=== PATIENT | female | born 1935 | race Caucasian/White ===

== ENCOUNTER → 2016-04-08 | Outpatient (CLI) | payer OTHER ==
[~2016-04-08] MED LIST: ATOR-22 PO; CALC-51 PO; DABI150C PO; FLEC50TA20 PO; LEVO75TA PO; LISI-461 PO; LORA-741 PO; METO50TA17 PO; MULTTAB58 PO; OMEGCAP2 PO; OMEP20CA9 PO; TMB100 PO
[2016-04-08 14:05] LABS: AST/SGOT 13 U/L (15-37); BLOOD UREA NITROGEN 16 mg/dl (7-18); BUN/CREATININE RATIO 22.1 (10-20); CALCIUM 8.6 mg/dl (8.5-10.1); CARBON DIOXIDE 28 mmol/L (21-32); CHLORIDE 106 mmol/L (98-107); CHOLESTEROL 147 mg/dl (0-200); GLUCOSE 83 mg/dl (70-99); POTASSIUM 4.1 mmol/L (3.5-5.1); SODIUM 142 mmol/L (136-145)
[2016-04-08 14:13] LABS: ALB/GLOB RATIO 1.1 (0.9-2); ALKALINE PHOSPHATASE 76 U/L (45-117); ALT/SGPT 23 U/L (12-78); CHOLESTEROL/HDL RATIO 2.2; HDL CHOLESTEROL 66 mg/dl; TRIGLYCERIDES 83 mg/dl (0-150); VERY LOW DENSITY LIPOPROT CALC 17 mg/dl
== END | disposition home or self-care (01) ==
LOC: C.LABSPEC 12:46
PROVIDERS: ATTEND Internal Medicine
DX: Z00.00 Encounter for general adult medical examination without abnormal findings (principal); I10 Essential (primary) hypertension; E03.9 Hypothyroidism, unspecified; E78.5 Hyperlipidemia, unspecified

== ENCOUNTER → 2016-04-13 | Outpatient (CLI) | payer OTHER | END | disposition home or self-care (01) | LOC: C.LABSPEC 14:58 | PROVIDERS: ATTEND Internal Medicine | DX: Z12.4 Encounter for screening for malignant neoplasm of cervix (principal) ==

== ENCOUNTER → 2016-08-01 | Outpatient (CLI) | payer OTHER ==
[~2016-08-01] MED LIST changes: +ASPCH81X PO; +MAGN400T6 PO
--- NOTE | 2016-08-01 12:55 | MAMMOGRAPHY REPORT ---
BILATERAL DIGITAL SCREENING MAMMOGRAM WITH CAD: 08/01/2016 CLINICAL HISTORY: Routine screening. Patient has no complaints. TECHNIQUE: Current study was also evaluated with a Computer Aided Detection (CAD) system. Bilateral CC and MLO views were obtained. COMPARISON: Comparison is made to exams dated: 07/27/2015 mammogram, 07/15/2014 mammogram, 04/29/2013 m ammogram, 04/24/2012 mammogram, 04/23/2011 mammogram - [facility], and 08/26/2008. BREAST COMPOSITION: The tissue of both breasts is almost entirely fatty. FINDINGS: No suspicious masses, calcifications, or areas of architectural distortion are noted in ei ther breast. There has been no significant interval change compared to prior exams. Scattered bilater al benign-appearing calcifications are not significantly changed. IMPRESSION: ACR BI-RADS CATEGORY 2: BENIGN There is no mammographic evidence of malignancy. A 1 year screening mammogram is recommended. The pa tient will receive written notification of the results. Approximately 10% of breast cancers are not detected with mammography. A negative mammographic report should not delay biopsy if a clinically suggestive mass is present. Donna Null M.D. /:08/01/2016 12:37:01 [employer]ungy Jump Master: Yumiko BANKS(Tamara)(M), [facility] letter sent: Normal 1/2 BI-RADS Code: ACR BI-RADS Category 2: Benign
== END | disposition home or self-care (01) ==
LOC: C.MAMM 11:45
PROVIDERS: ATTEND Internal Medicine
DX: Z12.31 Encounter for screening mammogram for malignant neoplasm of breast (principal)

== ENCOUNTER → 2016-10-07 | Outpatient (CLI) | payer OTHER ==
[2016-10-07 13:45] LABS: ALKALINE PHOSPHATASE 75 U/L (45-117); ALT/SGPT 28 U/L (12-78); AST/SGOT 15 U/L (15-37); BLOOD UREA NITROGEN 14 mg/dl (7-18); BUN/CREATININE RATIO 20.3 (10-20); CALCIUM 8.7 mg/dl (8.5-10.1); CARBON DIOXIDE 30 mmol/L (21-32); CHLORIDE 108 mmol/L (98-107); CHOLESTEROL 181 mg/dl (0-200); GLUCOSE 86 mg/dl (70-99); POTASSIUM 4.1 mmol/L (3.5-5.1); SODIUM 143 mmol/L (136-145); TRIGLYCERIDES 90 mg/dl (0-150); VERY LOW DENSITY LIPOPROT CALC 18 mg/dl
[2016-10-07 13:51] LABS: CHOLESTEROL/HDL RATIO 2.1; HDL CHOLESTEROL 85 mg/dl
== END | disposition home or self-care (01) ==
LOC: C.LABSPEC 12:27
PROVIDERS: ATTEND Internal Medicine
DX: I10 Essential (primary) hypertension (principal); E78.5 Hyperlipidemia, unspecified; E03.9 Hypothyroidism, unspecified

== ENCOUNTER 2016-12-05 13:18 | Emergency (ER) | payer OTHER ==
[~2016-12-05] VITALS: Ht 167.6 cm; Wt 68.3 kg
[~2016-12-05 13:18] MED LIST changes: -ASPCH81X PO; -MAGN400T6 PO
[2016-12-05 13:20] VITALS: TEMP 36.6; Ht 167.6 cm; Wt 68.3 kg
--- NOTE | 2016-12-05 13:57 | EMERGENCY ROOM VISIT NOTE ---
History Report prepared by Sergey: Ceasar Lucero Under the Supervision of: Dr. Shukri Brown D.O. First contact with patient: 13:35 Chief Complaint: IRREGULAR HEARTBEAT Stated Complaint: IRREGULAR HEARTBEAT History of Present Illness The patient is a 80 year old female who presents to the Emergency Room with complaints of an irregular heartbeat that began earlier today. 2 years ago, the patient was hospitalized and diagnosed with atrial fibrillation. She was placed on Pradaxa. Today, she noticed her heart beating abnormally and believes she is in atrial fibrillation. When this happens, she states she gets a vague feeling of discomfort and shakiness when she is in atrial fibrillation. She is normally in NSR. She denies any fevers, shortness of breath, or other complaints. She notes that she missed her evening medications last night. Source of History: patient Onset: earlier today Position: other (Heart) Quality: other (Irregular heart beat) Timing: constant Associated Symptoms: No fevers, No SOB Note: She has a vague feeling of discomfort and shakiness. She denies any other abnormal symptoms. Review of Systems See HPI for pertinent positives & negatives. A total of 10 systems reviewed and were otherwise negative. Past Medical & Surgical Medical Problems: (1) A.FLUTTER W RVR (2) Atrial fibrillation (3) Hypertension Family History Hypertension Social History Smoking Status: Never Smoker Alcohol Use: none Drug Use: none Marital Status: Housing Status: lives with family Occupation Status: retired Current/Historical Medications Scheduled Aspirin (Aspirin Chewable), 81 MG PO DAILY Atorvastatin (Lipitor), 20 MG PO QPM Dabigatran Etexilate Mesylate (Pradaxa), 150 MG PO BID Flecainide Acetate (Flecainide Acetate), 100 MG PO BID Levothyroxine Sodium (Synthroid), 75 MCG PO QAM Lorazepam (Ativan), 0.5 MG PO TID PRN Magnesium Oxide (Mag-Ox), 400 MG PO DAILY Multiple Vitamin (Multivitamin), 1 TAB PO NOON Caputa-3 Fatty Acids (Fish Oil), 1 CAP PO NOON Allergies Coded Allergies: Celecoxib (Verified Allergy, Unknown, RASH, 12/05/16) Sulfa Antibiotics (Verified Allergy, Unknown, UNKNOWN RXN TO SULFA DRUGS, 12/05/16) Physical Exam Vital Signs Date Time Temp Pulse Resp B/P (MAP) Pulse Ox O2 Delivery O2 Flow Rate FiO2 12/05/16 14:16 138 18 95/52 98 Room Air 12/05/16 13:52 133 12/05/16 13:48 97 Room Air 12/05/16 13:20 36.6 121 18 109/75 96 Room Air Physical Exam CONSTITUTIONAL/VITAL SIGNS: Reviewed / noted above. GENERAL: Non-toxic in appearance. INTEGUMENTARY: Warm, dry, and [place]. HEAD: Normocephalic. EYES: without scleral icterus or trauma. ENT/OROPHARYNX: clear and moist. LYMPHADENOPATHY/NECK: Is supple without lymphadenopathy or meningismus. RESPIRATORY: Lungs clear and equal. CARDIOVASCULAR: Rapid irregular pulse. GI/ABDOMEN: Soft and nontender. No organomegaly or pulsatile mass. No rebound or guarding. Normal bowel sounds. EXTREMITIES: Warm and well perfused. BACK: No CVA tenderness. NEUROLOGICAL: Intact without focal deficits. PSYCHIATRIC: normal affect. MUSCULOSKELETAL: Normally developed with good muscle tone. Medical Decision & Procedures ER Provider Diagnostic Interpretation: Radiology results as stated below per my review and radiologist interpretation: CHEST ONE VIEW PORTABLE CLINICAL HISTORY: Fever. Sepsis. COMPARISON STUDY: Chest radiograph May 23, 2015. FINDINGS: Lung volumes are normal. No consolidation is identified and there is no evidence of pulmonary edema. Cardiomediastinal silhouette is unremarkable. No pneumothorax or pleural effusion is present. Patient is mildly rotated. IMPRESSION: No acute cardiopulmonary findings. Electronically signed by: Edgardo Barker M.D. 12/05/2016 2:08 PM Dictated Date/Time: 12/05/2016 2:07 PM Laboratory Results 12/05/16 13:35 Red Blood Count 5.05, Mean Corpuscular Volume 91.3, Mean Corpuscular Hemoglobin 31.5, Mean Corpuscular Hemoglobin Concent 34.5, Mean Platelet Volume 11.1, Neutrophils (%) (Auto) 75.9, Lymphocytes (%) (Auto) 13.9, Monocytes (%) (Auto) 9.0, Eosinophils (%) (Auto) 0.7, Basophils (%) (Auto) 0.3, Neutrophils # (Auto) 6.59, Lymphocytes # (Auto) 1.21, Monocytes # (Auto) 0.78, Eosinophils # (Auto) 0.06, Basophils # (Auto) 0.03 12/05/16 13:35 Test 12/05/16 13:35 White Blood Count 8.69 K/uL (4.8-10.8) Red Blood Count 5.05 M/uL (4.2-5.4) Hemoglobin 15.9 g/dL (12.0-16.0) Hematocrit 46.1 % (37-47) Mean Corpuscular Volume 91.3 fL (80-100) Mean Corpuscular Hemoglobin 31.5 pg (25-34) Mean Corpuscular Hemoglobin Concent 34.5 g/dl (32-36) Platelet Count 262 K/uL (130-400) Mean Platelet Volume 11.1 fL (7.4-10.4) Neutrophils (%) (Auto) 75.9 % Lymphocytes (%) (Auto) 13.9 % Monocytes (%) (Auto) 9.0 % Eosinophils (%) (Auto) 0.7 % Basophils (%) (Auto) 0.3 % Neutrophils # (Auto) 6.59 K/uL (1.4-6.5) Lymphocytes # (Auto) 1.21 K/uL (1.2-3.4) Monocytes # (Auto) 0.78 K/uL (0.11-0.59) Eosinophils # (Auto) 0.06 K/uL (0-0.5) Basophils # (Auto) 0.03 K/uL (0-0.2) RDW Standard Deviation 45.9 fL (36.4-46.3) RDW Coefficient of Variation 13.8 % (11.5-14.5) Immature Granulocyte % (Auto) 0.2 % Immature Granulocyte # (Auto) 0.02 K/uL (0.00-0.02) Prothrombin Time 11.4 SECONDS (9.0-12.0) Prothromb Time International Ratio 1.1 (0.9-1.1) Activated Partial Thromboplast Time 40.0 SECONDS (21.0-31.0) Partial Thromboplastin Ratio 1.5 Anion Gap 9.0 mmol/L (3-11) Est Creatinine Clear Calc Drug Dose 47.4 ml/min Estimated GFR () 70.5 Estimated GFR (Non- 60.8 BUN/Creatinine Ratio 14.9 (10-20) Calcium Level 9.8 mg/dl (8.5-10.1) Total Bilirubin 0.8 mg/dl (0.2-1) Direct Bilirubin 0.2 mg/dl (0-0.2) Aspartate Amino Transf (AST/SGOT) 24 U/L (15-37) Alanine Aminotransferase (ALT/SGPT) 25 U/L (12-78) Alkaline Phosphatase 97 U/L (45-117) Total Creatine Kinase 92 U/L (26-192) Creatine Kinase MB 1.8 ng/ml (0.5-3.6) Creatine Kinase MB Ratio 2.0 (0-3.0) Troponin I 0.015 ng/ml (0-0.045) Total Protein 8.2 gm/dl (6.4-8.2) Albumin 4.2 gm/dl (3.4-5.0) Lipase 196 U/L (73-393) Thyroid Stimulating Hormone (TSH) 4.400 uIu/ml (0.300-4.500) Laboratory results as stated above per my review. Medications Administered Medications (Trade) Dose Ordered Sig/Tone Route Start Time Stop Time Status Last Admin Dose Admin Diltiazem HCl (Cardizem Inj) 15 mg NOW STAT IV 12/05/16 13:58 12/05/16 13:59 DC 12/05/16 14:15 15 MG ECG Indication: tachycardia Rate (beats per minute): 145 Rhythm: atrial fibrillation Findings: no acute ischemic change, no ectopy Change: 2nd ECG: A Fib 92, no ischemia or ectopy ED Course 1335: Previous medical records were reviewed. The patient was evaluated in room C3. A complete history and physical examination was performed. 1358: Ordered Cardizem Inj 15 mg IV 1608: I discussed the patient's case with Dr. Edison Linton - Hospitalist, at this time. He is comfortable with the patient being discharged and following up with him as an outpatient. 1610: On reevaluation, the patient is resting. I discussed the results and findings with the patient. She verbalized agreement of the treatment plan. She was discharged home. Medical Decision Differentials considered include acute myocardial infarction, acute coronary syndrome, myocarditis, pericarditis, pericardial effusions /tamponade, esophageal perforation, thoracic aortic dissection, pulmonary embolism, pneumonia, pneumothorax, pancreatitis, shingles, acute cholecystitis, perforated abdominal viscus. This is a 80-year-old female who presents to the ED with a chief complaint of rapid age fibrillation. The patient reports a history of initial fibrillation. She is chronically on Pradaxa. The patient states that she has had some vague discomfort in her chest yesterday. Her symptoms worsened today. She checked her pulse and felt that it was irregular and fast and came in for evaluation. The patient poured that she missed a dose of flecainide yesterday as well as a dose of Pradaxa and another dose of flecainide a few days ago. The patient's initial evaluation reveals a heart rate in the 04[birth year]02[birth year]1939 range. An EKG shows rapid A. fib without ischemic changes. CBC and complete metabolic panel were normal. TSH was normal. The patient was given Cardizem 15 mg IV. This slowed her heart rate into the 80s to 90 range. The patient states that her symptoms have improved. Troponin was negative and a chest x-ray did not show acute disease. I spoke with Dr. Arenas about the patient. He will follow-up with her as an outpatient. She feels comfortable going home. Medication Reconcilliation Current Medication List: was personally reviewed by me Blood Pressure Screening Patient's blood pressure: Normal blood pressure Blood pressure disposition: Did not require urgent referral Consults Time Called: 1606 Consulting Physician: Dr. Edison Linton - Hospitalist Returned Call: 1608 We discussed the patient's case. Please see the ED course for more information. Impression Primary Impression: Atrial fibrillation with rapid ventricular response Scribe Attestation The scribe's documentation has been prepared under my direction and personally reviewed by me in its entirety. I confirm that the note above accurately reflects all work, treatment, procedures, and medical decision making performed by me. Departure Information Dispostion Home / Self-Care Referrals Brad Mao M.D. (PCP) Forms HOME CARE DOCUMENTATION FORM, IMPORTANT VISIT INFORMATION Patient Instructions My [facility] Additional Instructions Follow-up with your doctor for further care and evaluation in 1-2 days. Return to the emergency department for worsening or new symptoms or any concerns. You have been examined and treated today on an emergency basis only. This is not a substitute for, or an effort to provide, complete comprehensive medical care. It is impossible to recognize and treat all injuries or illnesses in a single emergency department visit. It is therefore important that you follow up closely with your doctor. Call as soon as possible for an appointment.
[2016-12-05] MEDS ORDERED: DILTIAZEM HCL 5 MG/ML 5 ML VIAL IV STA (13:58)
[2016-12-05] MEDS ORDERED: MAGN400T6 PO (14:08)
[2016-12-05] MEDS ORDERED: ASPCH81X PO (14:08)
--- NOTE | 2016-12-05 14:09 | DIAGNOSTIC IMAGING REPORT ---
CHEST ONE VIEW PORTABLE CLINICAL HISTORY: Fever. Sepsis. COMPARISON STUDY: Chest radiograph May 23, 2015. FINDINGS: Lung volumes are normal. No consolidation is identified and there is no evidence of pulmonary edema. Cardiomediastinal silhouette is unremarkable. No pneumothorax or pleural effusion is present. Patient is mildly rotated. IMPRESSION: No acute cardiopulmonary findings. Electronically signed by: Edgardo Barker M.D. 12/05/2016 2:08 PM Dictated Date/Time: 12/05/2016 2:07 PM
[2016-12-05 14:10] LABS: INR 1.1 (0.9-1.1); PARTIAL THROMBOPLASTIN RATIO 1.5; PROTHROMBIN TIME (PATIENT) 11.4 SECONDS (9.0-12.0)
[2016-12-05 14:18] LABS: BUN/CREATININE RATIO 14.9 (10-20); CALCIUM 9.8 mg/dl (8.5-10.1); CREATININE 0.9 mg/dl (0.60-1.20); POTASSIUM 3.8 mmol/L (3.5-5.1)
[2016-12-05 14:20] LABS: BASO % 0.3 %; BASO ABS # 0.03 K/uL (0-0.2); COMPLETE YES; EOS % 0.7 %; HEMATOCRIT 46.1 % (37-47); IG% 0.2 %; LYMPH % 13.9 %; LYMPH ABS # 1.21 K/uL (1.2-3.4); MEAN CELL VOLUME 91.3 fL (80-100); MEAN CORPUSCULAR HEMOGLOBIN 31.5 pg (25-34); MEAN CORPUSCULAR HGB CONC 34.5 g/dl (32-36); MEAN PLATELET VOLUME 11.1 fL (7.4-10.4); NEUT % 75.9 %; PLATELET COUNT 262 K/uL (130-400); RED BLOOD COUNT 5.05 M/uL (4.2-5.4); WHITE BLOOD COUNT 8.69 K/uL (4.8-10.8)
[2016-12-05 14:29] LABS: THYROID STIMULATING HORMONE 4.4 uIu/ml (0.300-4.500)
[2016-12-05 16:36] VITALS: BP 132/80; PULSE 85; O2SAT 95
== END 2016-12-05 16:38 | disposition home or self-care (01) ==
LOC: C.EDB 13:19 → C.EDC 16:38
DX: I48.91 Unspecified atrial fibrillation (principal); I10 Essential (primary) hypertension; I48.92 Unspecified atrial flutter; Z82.49 Family history of ischemic heart disease and other diseases of the circulatory system; Z79.82 Long term (current) use of aspirin

== ENCOUNTER → 2017-04-15 | Outpatient (CLI) | payer OTHER ==
[~2017-04-15] MED LIST changes: +ASPCH81X PO; -CALC-51 PO; -FLEC50TA20 PO; -LISI-461 PO; +MAGN400T6 PO; -METO50TA17 PO; -OMEP20CA9 PO
[2017-04-15 14:00] LABS: BLOOD UREA NITROGEN 12 mg/dl (7-18); CALCIUM 8.5 mg/dl (8.5-10.1); CARBON DIOXIDE 25 mmol/L (21-32); CHOLESTEROL 209 mg/dl (0-200); CREATININE 0.62 mg/dl (0.60-1.20); GLUCOSE 81 mg/dl (70-99); SODIUM 141 mmol/L (136-145)
[2017-04-15 14:10] LABS: LDL CHOLESTEROL (DIRECT) 92 mg/dl
== END | disposition home or self-care (01) ==
LOC: C.LABSPEC 12:40
PROVIDERS: ATTEND Internal Medicine
DX: Z00.00 Encounter for general adult medical examination without abnormal findings (principal); I48.0 Paroxysmal atrial fibrillation; E78.5 Hyperlipidemia, unspecified; E03.9 Hypothyroidism, unspecified; I10 Essential (primary) hypertension

== ENCOUNTER → 2017-04-18 | Outpatient (CLI) | payer OTHER ==
[2017-04-22 15:24] LABS: FECAL OCCULT BLOOD #1 NEGATIVE (NEGATIVE); FECAL OCCULT BLOOD #2 NEGATIVE (NEGATIVE); FECAL OCCULT BLOOD #3 NEGATIVE (NEGATIVE)
== END | disposition home or self-care (01) ==
LOC: C.LABSPEC 14:41
PROVIDERS: ATTEND Internal Medicine
DX: Z12.11 Encounter for screening for malignant neoplasm of colon (principal)

== ENCOUNTER → 2017-10-13 | Outpatient (CLI) | payer OTHER ==
[2017-10-13 14:36] LABS: ALBUMIN 3.6 gm/dl (3.4-5.0); ALKALINE PHOSPHATASE 62 U/L (45-117); ALT/SGPT 41 U/L (12-78); AST/SGOT 31 U/L (15-37); BLOOD UREA NITROGEN 10 mg/dl (7-18); CALCIUM 8.3 mg/dl (8.5-10.1); CARBON DIOXIDE 28 mmol/L (21-32); CHOLESTEROL 188 mg/dl (0-200); CREATININE 0.61 mg/dl (0.60-1.20); GLUCOSE 69 mg/dl (70-99); LDL CHOLESTEROL (DIRECT) 78 mg/dl; POTASSIUM 4.1 mmol/L (3.5-5.1); SODIUM 140 mmol/L (136-145); TOTAL PROTEIN 7.1 gm/dl (6.4-8.2)
== END | disposition home or self-care (01) ==
LOC: C.LABSPEC 13:11
PROVIDERS: ATTEND Internal Medicine
DX: E78.5 Hyperlipidemia, unspecified (principal); I48.91 Unspecified atrial fibrillation; E03.9 Hypothyroidism, unspecified

== ENCOUNTER 2020-01-26 09:57 | Observation (INO) ==
--- NOTE | 2020-01-26 10:58 | Emergency Department Note ---
History of Present Illness General Chief complaint: Cardiac Assessment Stated complaint: CHEST PAIN Time Seen by Provider: 01/26/20 10:08 Source: patient, EMS, RN notes reviewed and old records reviewed Mode of arrival: ambulatory Limitations: no limitations History of Present Illness Provider complaint: chest pain Onset (ago): hour(s) 6 Location: chest Radiation: back Severity: severe Pain Consistency: + intermittent and + now resolved Maximum Pain Intensity: 0 Current Pain Intensity: 0 Quality: + aching Relieved By: + immobilization and + rest Exacerbated By: + none Associated symptoms: + denies other symptoms and + diaphoresis; no fever/chills, no headaches, no loss of appetite, no nausea/vomiting and no shortness of breath Treatments prior to arrival: none This is an 84-year-old female who was sleeping last evening when she was suddenly awoken by severe sharp chest pain that radiated into her back. The patient reports that she had severe sharp pain that she has never had before. She reports diaphoresis along with the pain. The pain went away on its own without the patient doing anything. She then got up this morning and was preparing her breakfast with the same exact pain came back. She reports nothing seems to bring the pain on and nothing seems to make it worse. The pain again went away on its own. Patient is currently on flecainide. Home Medications Medication Instructions Recorded Confirmed Type apixaban [Eliquis] 5 mg PO BID 01/26/20 01/26/20 History atorvastatin 20 mg PO QPM 01/26/20 01/26/20 History diphenhydramine-acetaminophen 2 tab PO HS PRN 01/26/20 01/26/20 History [Tylenol PM Extra Strength] flecainide 100 mg PO BID 01/26/20 01/26/20 History levothyroxine 75 mcg PO DAILYBB 01/26/20 01/26/20 History metoprolol tartrate 37.5 mg PO BID 01/26/20 01/26/20 History Allergies Allergy/AdvReac Type Severity Reaction Status Date / Time celecoxib Allergy Unknown RASH Verified 01/26/20 10:19 Sulfa (Sulfonamide Allergy Unknown UNKNOWN Verified 01/26/20 10:19 Antibiotics) RXN TO SULFA DRUGS Past Med/Surg History Medical History (Updated 01/26/20 @ 14:42 by Mary Ann Antonio DO) Atrial fibrillation Dyslipidemia Hypertension Surgical History (Updated 01/26/20 @ 14:30 by Mary Ann Antonio DO) History of hysterectomy History of repair of rectocele History of shoulder surgery Family History (Updated 01/26/20 @ 14:27 by Mary Ann Antonio DO) Other Bronchiectasis Social History (Updated 01/26/20 @ 14:28 by Mary Ann Antonio DO) Smoking Status: Never smoker Hx Alcohol Use: No Hx Substance Use: No Preferred Language: Montenegrin Communication Ability: Effective 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 Beliefs That Will Affect Care: None Current Living Situation: Spouse Feels Safe at Home: Yes Assistive Devices: None Review of Systems A total of 10 systems reviewed and were otherwise negative Physical Exam Vital Signs Vital Signs - 24 hr 01/26/20 10:01 01/26/20 10:05 01/26/20 10:30 Temperature 36.5 C Temperature Source Oral Pulse Rate 66 65 65 Pulse Rate [Apical] Pulse Rate from SpO2 Sensor 66 65 65 Respiratory Rate 14 11 L 13 Blood Pressure 147/97 H 147/97 H Blood Pressure [Left Arm] Blood Pressure Mean 104 113 Blood Pressure Mean [Left Arm] Pulse Oximetry 96 96 96 Oxygen Delivery Method Room Air Sepsis Recent Fever Within 48 Hours No Sepsis New/Unexplained Change in Mental Status No Sepsis Action Taken by Nursing No Action Required 01/26/20 11:00 01/26/20 11:09 01/26/20 12:05 Temperature Temperature Source Pulse Rate 65 Pulse Rate [Apical] 67 Pulse Rate from SpO2 Sensor 65 Respiratory Rate 15 18 Blood Pressure Blood Pressure [Left Arm] 154/95 H Blood Pressure Mean Blood Pressure Mean [Left Arm] 114 Pulse Oximetry 97 98 98 Oxygen Delivery Method Room Air Room Air Sepsis Recent Fever Within 48 Hours Sepsis New/Unexplained Change in Mental Status Sepsis Action Taken by Nursing 01/26/20 13:58 Temperature Temperature Source Pulse Rate 68 Pulse Rate [Apical] Pulse Rate from SpO2 Sensor 68 Respiratory Rate 21 Blood Pressure 176/102 H Blood Pressure [Left Arm] Blood Pressure Mean 108 Blood Pressure Mean [Left Arm] Pulse Oximetry 97 Oxygen Delivery Method Room Air Sepsis Recent Fever Within 48 Hours Sepsis New/Unexplained Change in Mental Status Sepsis Action Taken by Nursing VITAL SIGNS - Vital signs and nursing notes were reviewed. GENERAL - 84-year-old female appearing stated age who is in no acute distress. Communicates well with provider and answers questions appropriately. SKIN - Without rashes. HEAD - NC/AT. EYES - PERRL with EOMI bilaterally. Sclera anicteric. Palpebral conjunctiva pink and moist with no injection noted. EARS - No deformities of external structures noted on gross examination bilaterally. No pain elicited with palpation of the tragus bilaterally. External auditory canals without discharge or otorrhea. Tympanic membranes pearly valentin without retraction or bulging. No fluid or purulent material visualized behind the TM. Handle of malleus, umbo, cone of light, pars tensa/flaccid all easily visualized. NOSE - Midline and without cyanosis. No epistaxis or purulent drainage noted. Septum midline without deviation or septal hematoma noted. MOUTH/OROPHARYNX - Without perioral cyanosis. Buccal mucosa pink and moist and without leukoplakia. Tongue midline with equal elevation of palate bilaterally. No tonsillar hypertrophy, erythema, or exudates noted. dentition noted. NECK - Neck with FROM. Supple to palpation. lymphadenopathy noted. No nuchal rigidity. LUNGS - Chest wall symmetric without accessory muscle use, intercostals retractions, or central cyanosis. Normal vesicular breath sounds CTA B/L. No wheezes, rales, or rhonchi appreciated. CARDIAC - RRR with S1/S2. No murmur, rubs, or gallops appreciated. ABDOMEN - Abdominal contour without pulsations or visible masses. BS normoactive all four quadrants. No tenderness, palpable masses, hepatosplen omegaly, or ascites noted. EXTREMITIES - No clubbing or peripheral cyanosis. No pretibial edema present. +3/5 radial, posterior tibial, and dorsalis pedis pulses palpated throughout. +5/5 strength noted in UE/LE bilaterally. NEUROLOGIC - Cranial nerves II through XII grossly intact. Sensory intact to light touch throughout. Patellar reflexes +2/4. PSYCH - A&Ox3 and cooperates fully with examiner. Pt is very pleasant and interacts well with examiner. Course Administered Medications Apixaban (Apixaban 5 Mg Tablet) 5 mg PO BID DION Stop: 02/25/20 20:59 Last Admin: 01/26/20 20:35 Dose: 5 mg Documented by: [id number] Atorvastatin Calcium (Atorvastatin 20 Mg Tab) 20 mg PO QPM DION Stop: 02/25/20 20:59 Last Admin: 01/26/20 20:34 Dose: 20 mg Documented by: [id number] Flecainide Acetate (Flecainide Acetate 100 Mg Tablet) 100 mg PO BID DION Stop: 02/25/20 20:59 Last Admin: 01/26/20 20:35 Dose: 100 mg Documented by: [id number] Levothyroxine Sodium (Levothyroxine Sodium 75 Mcg Tablet) 75 mcg PO DAILYBB DION Stop: 02/26/20 06:29 Last Admin: 01/27/20 06:05 Dose: 75 mcg Documented by: [id number] Metoprolol Tartrate (Metoprolol Tartrate 25 Mg Tab) 37.5 mg PO BID DION Stop: 02/25/20 20:59 Last Admin: 01/26/20 19:00 Dose: 37.5 mg Documented by: [id number] Discontinued Medications Sodium Chloride (Nss 1000ml) 500 mls @ 999 mls/hr IV .Q31M ONE Stop: 01/26/20 13:35 Last Infusion: 01/26/20 13:54 Dose: 0 mls/hr Documented by: [id number] Admin: 01/26/20 13:22 Dose: 999 mls/hr Documented by: [id number] Ioversol (Optiray 320 125ml) 120 ml IV ONCE ONE Stop: 01/26/20 12:00 Last Admin: 01/26/20 11:59 Dose: 120 ml Documented by: [id number] Medical Decision Making Differential Diagnosis Cardiac ischemia, aortic dissection, pulmonary embolism, pneumothorax, pneumonia, pericarditis, myocarditis, esophageal rupture, GERD, cholecystitis, pancreatitis, musculoskeletal, as well as other pathologies. Medical Records Attestation: I reviewed the patient's medical records. Home Medications Current Medication List: was personally reviewed by me Laboratory Data Attestation: I reviewed the patient's lab results. Result diagrams: 01/26/20 11:27 01/26/20 11:27 Lab Results 01/26/20 01/26/20 01/26/20 Range/Units 11: 11: 11: WBC 8.44 (4.8-10.8) K/uL RBC 4.16 L (4.2-5.4) M/uL Hgb 13.0 (12.0-16.0) g/dL POC Hgb (12.0-16.0) g/dl Hct 39.8 (37-47) % POC Hct (37-47) % MCV 95.7 (80-100) fL MCH 31.3 (25-34) pg MCHC 32.7 (32-36) g/dL RDW Std Deviation 42.8 (36.4-46.3) fL RDW Coeff of Manav 12.2 (11.5-14.5) % Plt Count 202 (130-400) K/uL MPV 11.1 H (7.4-10.4) fL Immature Gran % (Auto) 0.1 % Neut % (Auto) 80.6 % Lymph % (Auto) 10.4 % [place] % (Auto) 7.0 % Eos % (Auto) 1.7 % Baso % (Auto) 0.2 % Neut # (Auto) 6.80 H (1.4-6.5) K/uL Lymph # (Auto) 0.88 L (1.2-3.4) K/uL [place] # (Auto) 0.59 (0.11-0.59) K/uL Eos # (Auto) 0.14 (0-0.5) K/uL Baso # (Auto) 0.02 (0-0.2) K/uL Immature Gran # (Auto) 0.01 (0.00-0.02) K/uL PT 10.6 (9.0-12.0) Seconds INR 1.0 (0.9-1.1) APTT 24.6 (21.0-31.0) Seconds PTT Ratio 0.9 POC Sodium (135-144) mmol/L Sodium 141 (136-145) mmol/L POC Potassium (3.3-5.0) mmol/L Potassium 5.1 (3.5-5.1) mmol/L POC Chloride (101-112) mmol/L Chloride 108 H (98-107) mmol/L Carbon Dioxide 29 (21-32) mmol/L POC Total CO2 (24-31) mmol/L Anion Gap 4.0 (3-11) POC Anion Gap (16-25) mmol/L POC BUN (7-18) mg/dl BUN 18 (7-18) mg/dl Creatinine 0.76 (0.6-1.2) mg/dl POC Creatinine (0.6-1.3) mg/dl Est Cr Clr Drug Dosing 52.5 ml/min Est GFR ( Amer) 84.1 Est GFR (Non-Af Amer) 72.5 BUN/Creatinine Ratio 23.4 H (10-20) Glucose 107 H (70-99) mg/dl POC Glucose (other) (70-99) mg/dl Calcium 8.9 (8.5-10.1) mg/dl POC Ioniz Calcium Michelle (1.12-1.32) mmol/l Magnesium (1.8-2.4) mg/dl Total Bilirubin 0.4 (0.2-1) mg/dl AST 33 (15-37) U/L ALT 35 (12-78) U/L Alkaline Phosphatase 69 (45-117) U/L Total Creatine Kinase 42 (26-192) U/L CK-MB (CK-2) 1.1 (0.5-3.6) ng/ml CK/CKMB % Calc 2.6 (0-3.0) Troponin I 0.020 (0-0.045) ng/ml Total Protein 6.6 (6.4-8.2) gm/dl Albumin 3.4 (3.4-5.0) gm/dl Globulin 3.2 (2.5-4.0) gm/dl Albumin/Globulin Ratio 1.1 (0.9-2) Lipase 243 (73-393) U/L 01/26/20 01/26/20 01/26/20 Range/Units 11:46 13:11 13:15 WBC (4.8-10.8) K/uL RBC (4.2-5.4) M/uL Hgb (12.0-16.0) g/dL POC Hgb 13.3 (12.0-16.0) g/dl Hct (37-47) % POC Hct 39 (37-47) % MCV (80-100) fL MCH (25-34) pg MCHC (32-36) g/dL RDW Std Deviation (36.4-46.3) fL RDW Coeff of Manav (11.5-14.5) % Plt Count (130-400) K/uL MPV (7.4-10.4) fL Immature Gran % (Auto) % Neut % (Auto) % Lymph % (Auto) % [place] % (Auto) % Eos % (Auto) % Baso % (Auto) % Neut # (Auto) (1.4-6.5) K/uL Lymph # (Auto) (1.2-3.4) K/uL [place] # (Auto) (0.11-0.59) K/uL Eos # (Auto) (0-0.5) K/uL Baso # (Auto) (0-0.2) K/uL Immature Gran # (Auto) (0.00-0.02) K/uL PT (9.0-12.0) Seconds INR (0.9-1.1) APTT (21.0-31.0) Seconds PTT Ratio POC Sodium 141 (135-144) mmol/L Sodium (136-145) mmol/L POC Potassium 5.1 H (3.3-5.0) mmol/L Potassium (3.5-5.1) mmol/L POC Chloride 104 (101-112) mmol/L Chloride (98-107) mmol/L Carbon Dioxide (21-32) mmol/L POC Total CO2 28 (24-31) mmol/L Anion Gap (3-11) POC Anion Gap 15.0 L (16-25) mmol/L POC BUN 18 (7-18) mg/dl BUN (7-18) mg/dl Creatinine (0.6-1.2) mg/dl POC Creatinine 0.7 (0.6-1.3) mg/dl Est Cr Clr Drug Dosing ml/min Est GFR ( Amer) Est GFR (Non-Af Amer) BUN/Creatinine Ratio (10-20) Glucose (70-99) mg/dl POC Glucose (other) 107 H (70-99) mg/dl Calcium (8.5-10.1) mg/dl POC Ioniz Calcium Michelle 1.19 (1.12-1.32) mmol/l Magnesium 2.1 (1.8-2.4) mg/dl Total Bilirubin (0.2-1) mg/dl AST (15-37) U/L ALT (12-78) U/L Alkaline Phosphatase (45-117) U/L Total Creatine Kinase (26-192) U/L CK-MB (CK-2) (0.5-3.6) ng/ml CK/CKMB % Calc (0-3.0) Troponin I 0.018 (0-0.045) ng/ml Total Protein (6.4-8.2) gm/dl Albumin (3.4-5.0) gm/dl Globulin (2.5-4.0) gm/dl Albumin/Globulin Ratio (0.9-2) Lipase (73-393) U/L // Range/Units 13:15 WBC (4.8-10.8) K/uL RBC (4.2-5.4) M/uL Hgb (12.0-16.0) g/dL POC Hgb (12.0-16.0) g/dl Hct (37-47) % POC Hct (37-47) % MCV (80-100) fL MCH (25-34) pg MCHC (32-36) g/dL RDW Std Deviation (36.4-46.3) fL RDW Coeff of Manav (11.5-14.5) % Plt Count (130-400) K/uL MPV (7.4-10.4) fL Immature Gran % (Auto) % Neut % (Auto) % Lymph % (Auto) % [place] % (Auto) % Eos % (Auto) % Baso % (Auto) % Neut # (Auto) (1.4-6.5) K/uL Lymph # (Auto) (1.2-3.4) K/uL [place] # (Auto) (0.11-0.59) K/uL Eos # (Auto) (0-0.5) K/uL Baso # (Auto) (0-0.2) K/uL Immature Gran # (Auto) (0.00-0.02) K/uL PT (9.0-12.0) Seconds INR (0.9-1.1) APTT (21.0-31.0) Seconds PTT Ratio POC Sodium (135-144) mmol/L Sodium (136-145) mmol/L POC Potassium (3.3-5.0) mmol/L Potassium (3.5-5.1) mmol/L POC Chloride (101-112) mmol/L Chloride (98-107) mmol/L Carbon Dioxide (21-32) mmol/L POC Total CO2 (24-31) mmol/L Anion Gap (3-11) POC Anion Gap (16-25) mmol/L POC BUN (7-18) mg/dl BUN (7-18) mg/dl Creatinine (0.6-1.2) mg/dl POC Creatinine (0.6-1.3) mg/dl Est Cr Clr Drug Dosing ml/min Est GFR ( Amer) Est GFR (Non-Af Amer) BUN/Creatinine Ratio (10-20) Glucose (70-99) mg/dl POC Glucose (other) (70-99) mg/dl Calcium (8.5-10.1) mg/dl POC Ioniz Calcium Michelle (1.12-1.32) mmol/l Magnesium (1.8-2.4) mg/dl Total Bilirubin (0.2-1) mg/dl AST (15-37) U/L ALT (12-78) U/L Alkaline Phosphatase (45-117) U/L Total Creatine Kinase (26-192) U/L CK-MB (CK-2) (0.5-3.6) ng/ml CK/CKMB % Calc (0-3.0) Troponin I 0.024 (0-0.045) ng/ml Total Protein (6.4-8.2) gm/dl Albumin (3.4-5.0) gm/dl Globulin (2.5-4.0) gm/dl Albumin/Globulin Ratio (0.9-2) Lipase (73-393) U/L Imaging Data Radiologist's Impression: [facility], [phone] CT Scan Report Patient: QIANA WEBBER HAdniharika Date: 01/26/20#: [id number]: [address] ID:[id number]: Date: [address] [facility] Zip: [place], [place] [address]Ced: 84Location: EDSex: FRoom/Bed:Att Phy:Diagnosis: CHEST PAINPri Phy: Brad Mao M.D.Service Date: 01/26/20Fa Phy:Interpreting Phy: Edgardo Barker MDAdmit Phy: Ordering Phy: Shukri Boggs MD cc: ~ CT ANGIOGRAPHY OF THE CHEST, PULMONARY EMBOLUS PROTOCOL CLINICAL HISTORY: Chest pain. Evaluate for pulmonary embolus. COMPARISON STUDY: Chest radiograph November 05, 2016 and January 26, 2020. TECHNIQUE: Following IV administration of 120 mL of Optiray-320, helical axial images of the chest were obtained utilizing the pulmonary embolus protocol. Maximal intensity projections and sagittal and coronal reformats were viewed on an independent 3D workstation. IV contrast was administered without complication. Automated exposure control was utilized for the study. A dose lowering technique was utilized adhering to the principles of ALARA. CT DOSE: 291.24 mGy.cm FINDINGS: No pulmonary emboli identified. There is moderate cardiomegaly. No pericardial effusion is noted. Borderline enlarged right infrahilar lymph node on image 143 of 360 measures 0.8 cm in short axis diameter. No pneumothorax or pleural effusion is noted. Note is made of a 7 mm subpleural nodule within the right lower lobe with mild adjacent groundglass opacity. There is also a 9 mm groundglass opacity within the right lower lobe on image 66. A 0.6 x 0.3 cm subpleural lingular nodule on image 168 is likely benign. No acute fracture or suspicious lesion within the bony thorax is noted. Upper abdomen is unremarkable. IMPRESSION: 1. No pulmonary emboli identified. 2. Moderate cardiomegaly. 3. 9 mm groundglass opacity within the right lower lobe and a 7 mm subpleural nodule within the right lower lobe with mild adjacent groundglass opacity. These may reflect an infectious process. However, a follow-up chest CT in 6 months is recommended as pulmonary nodules could appear similar. ACT 112: Negative or not required by law. Electronically signed by: Edgardo Barker M.D. 01/26/2020 12:32 PM Dictated: 01/26/20 1223Transcribed: 01/26/20 1223 [facility], [phone] XRay Report Patient: QIANA WEBBER HAdniharika Date: 01/26/20#: [id number]: [address] ID:[id number]: Date: [address] Zip: [place] [id number]: 84Location: EDSex: FRoom/Bed:Att Phy:Diagnosis: CHEST PAINPri Phy: Brad Mao M.D.Service Date: 01/26/20Fa Phy:Interp reting Phy: Sumanth Pascual MDAdmit Phy: Ordering Phy: Shukri Boggs MD cc: ~ XR chest 1V portable HISTORY: Atypical Chest Pain COMPARISON: Chest 12/05/2016. FINDINGS: The lungs are clear. The cardio silhouette is top normal in size. This remains unchanged. No pleural effusions. No pneumothorax. IMPRESSION: No significant change compared to the prior study. No acute process. ACT 112: Negative or not required by law. Electronically signed by: Sumanth Pascual M.D. 01/26/2020 11:34 AM Dictated: 01/26/201131Transcribed: 01/26/201131 ECG Data Attestation: I personally reviewed and interpreted this ECG as follows: Indication: + weakness Rate (beats per minute): 66 Rhythm: + sinus rhythm ECG Intervals/blocks: + First degree AV block and + Normal QT-c (484) ECG [place]: + Normal ECG ST segments: no ST depression and no ST elevation Comparison ECG Date: from (12/05/2016) Change: the following changes noted (NSR has replaced afib) Additional Comments: Repeat EKG shows a sinus rhythm first-degree AV block pro longed QT no ST elevation or depression QTC is 501 ventricular rate of [address] elevation or depression MDM Narrative Patient was seen and evaluated as above in room C6. Review was performed of nursing notes and vital signs. I did review pertinent previous visits and patient history. After obtaining a thorough history and physical examination the above work up was performed. This is a 89-year-old female who presents emergency department complaining of 2 episodes of severe chest pain that is since resolved. The patient is on flecainide. She is currently in a normal sinus rhythm. Her potassium was found to be elevated at 5. I will note her troponin is not 0. I did discuss the case with the sales operations lead on-call who asked that the patient be ruled out. An order was placed for continuous cardiac monitoring. The monitor shows a rate of 67 with Normal SInus rhythm. The patient was evaluated during the global COVID-19 pandemic, and that diagnosis was suspected/considered upon their initial presentation. Their evaluation, treatment and testing was consistent with current guidelines for patients who present with complaints or symptoms that may be related to COVID- 19. Impression & Plan Chest pain, Pulmonary nodule Discharge Plan Visit Data Chief Complaint: Cardiac Assessment Stated Complaint: CHEST PAIN ED Provider: Shukri Boggs Discharge Problem: Chest pain, Pulmonary nodule Patient Disposition: Admitted As Inpatient Discharge Instructions Interventions: ED Discharge Assessment Last Done: 01/26/20 15:34 Discharge Problem: Chest pain Qualifiers: Chest pain type: unspecified Qualified Code(s): R07.9 - Chest pain, unspecified
--- NOTE | 2020-01-26 11:36 | XRay Report ---
XR chest 1V portable HISTORY: Atypical Chest Pain COMPARISON: Chest 12/05/2016. FINDINGS: The lungs are clear. The cardio silhouette is top normal in size. This remains unchanged. N o pleural effusions. No pneumothorax. IMPRESSION: No significant change compared to the prior study. No acute process. ACT 112: Negative or not required by law. Electronically signed by: Sumanth Pascual M.D. 01/26/2020 11:34 AM
[2020-01-26] MEDS ORDERED: OPTIRAY 320 125ml IV ONE (11:59)
[2020-01-26 12:00] LABS: iSTAT Creatinine 0.7 mg/dl (0.6-1.3); iSTAT Hemoglobin 13.3 g/dl (12.0-16.0); iSTAT Ionized Calcium 1.19 mmol/l (1.12-1.32); iSTAT Potassium 5.1 mmol/L (3.3-5.0)
[2020-01-26 12:07] LABS: Basophils # (auto) 0.02 K/uL (0-0.2); Basophils % (auto) 0.2 %; Eosinophils # (auto) 0.14 K/uL (0-0.5); Eosinophils % (auto) 1.7 %; Hematocrit (blood only) 39.8 % (37-47); Immature Granulocytes # (auto) 0.01 K/uL (0.00-0.02); Immature Granulocytes % (auto) 0.1 %; Lymphocytes # (auto) 0.88 K/uL (1.2-3.4); Lymphocytes % (auto) 10.4 %; Mean Corpuscular Hemoglobin 31.3 pg (25-34); Mean Corpuscular Hgb Conc 32.7 g/dL (32-36); Mean Corpuscular Volume 95.7 fL (80-100); Mean Platelet Volume 11.1 fL (7.4-10.4); Monocytes # (auto) 0.59 K/uL (0.11-0.59); Neutrophils % (auto) 80.6 %; Platelet Count 202 K/uL (130-400); RDW Coefficient of Variation 12.2 % (11.5-14.5); RDW Standard Deviation 42.8 fL (36.4-46.3); Red Blood Count 4.16 M/uL (4.2-5.4); White Blood Count 8.44 K/uL (4.8-10.8)
[2020-01-26 12:14] LABS: Albumin Level 3.4 gm/dl (3.4-5.0); BUN Creatinine Ratio 23.4 (10-20); Calcium 8.9 mg/dl (8.5-10.1); Creatinine Clr Calc Pharmacy 52.5 ml/min; Est GFR (African American) 84.1; Est GFR (Non-African American) 72.5; Partial Thromboplastin Ratio 0.9; Partial Thromboplastin Time 24.6 Seconds (21.0-31.0); Potassium 5.1 mmol/L (3.5-5.1); Prothrombin Time 10.6 Seconds (9.0-12.0)
[2020-01-26 12:19] LABS: Albumin Globulin Ratio 1.1 (0.9-2); Bilirubin,Total 0.4 mg/dl (0.2-1); Creatine Kinase MB 1.1 ng/ml (0.5-3.6); Globulin 3.2 gm/dl (2.5-4.0); Total Protein 6.6 gm/dl (6.4-8.2); Troponin I 0.02 ng/ml (0-0.045)
--- NOTE | 2020-01-26 12:33 | CT Scan Report ---
CT ANGIOGRAPHY OF THE CHEST, PULMONARY EMBOLUS PROTOCOL CLINICAL HISTORY: Chest pain. Evaluate for pulmonary embolus. COMPARISON STUDY: Chest radiograph November 05, 2016 and January 26, 2020. TECHNIQUE: Following IV administration of 120 mL of Optiray-320, helical axial images of the chest we re obtained utilizing the pulmonary embolus protocol. Maximal intensity projections and sagittal and coronal reformats were viewed on an independent 3D workstation. IV contrast was administered withou t complication. Automated exposure control was utilized for the study. A dose lowering technique wa s utilized adhering to the principles of ALARA. CT DOSE: 291.24 mGy.cm FINDINGS: No pulmonary emboli identified. There is moderate cardiomegaly. No pericardial effusion is noted. Borderline enlarged right infrahilar lymph node on image 143 of 360 measures 0.8 cm in short axis diameter. No pneumothorax or pleural effusion is noted. Note is made of a 7 mm subpleural nodule within the right lower lobe with mild adjacent groundglass opacity. There is also a 9 mm groundglass opacity within the right lower lobe on image 66. A 0.6 x 0.3 cm subpleural lingular nodule on image 168 is likely benign. No acute fracture or suspicious lesion within the bony thorax is noted. Upper a bdomen is unremarkable. IMPRESSION: 1. No pulmonary emboli identified. 2. Moderate cardiomegaly. 3. 9 mm groundglass opacity within the right lower lobe and a 7 mm subpleural nodule within the right lower lobe with mild adjacent groundglass opacity. These may reflect an infectious process. However, a follow-up chest CT in 6 months is recommended as pulmonary nodules could appear similar. ACT 112: Negative or not required by law. Electronically signed by: Edgardo Barker M.D. 01/26/2020 12:32 PM
[2020-01-26] MEDS ORDERED: SODIUM CHLORIDE 0.9% 1000ML 500 ML IV ONE (13:05)
--- NOTE | 2020-01-26 14:49 | History & Physical Report ---
Date of Service January 26, 2020 Assessment & Plan (1) Chest pain: Liane Cam is an 84yo C female presenting with SSCP that woke her from sleep. EKG with no acute changes. Troponin is detectable although within normal range (0.02 --> 0.018 --> 0.024). CTA with no pulmonary emboli but she does have a 9mm groundglass opacity in the RLL and a 7mm subpleural nodule in the RLL with adjacent groundglass opacities. Covid-19 rapid antigen testing is NEGATIVE. -Observation to medical floor with telemetry -Continue to trend troponin q 8 hours x 2 additional sets -Check 2D echocardiogram -Continue Metoprolol 37.5mg po BID -Continue Atorvastatin -Will keep NPO after midnight for possible stress testing -Cardiology consult vs followup pending findings Present on Admission?: Yes (2) Atrial fibrillation: Currently in sinus rhythm with 1st degree AV block. Flecainide level pending. 1st degree AV block and slightly prolonged QT interval (478ms) present on EKG from 01/2015 as well -Continue Flecainide 100mg po BID -Continue Apixaban 5mg po BID -Continue Metoprolol 37.5mg po BID (3) Hypertension: Blood pressure stable -Continue Metoprolol 37.5mg po BID -Continue to monitor Present on Admission?: Yes (4) Pulmonary nodule: Noted on CTA. Patient is afebrile, denies cough/SOB. No exposure to Covid-19 positive individuals over the last month and patient's rapid Covid-19 antigen test NEGATIVE in the ER today. -Repeat imaging in 6 months recommended F/E/N - Heplock. Electrolytes WNL. Heart healthy diet, NPO after midnight for possible stress testing Ppx - On Apixaban 5mg po BID Code - Full per discussion with patient Dispo - Observation to medical with telemetry History of Present Illness Chief Complaint: chest pain Primary Care Provider: Brad Torres MD Liane Cam is a pleasant 84yo C female with history of HTN on Apixaban and Flecainide therapy, HTN presenting with chest pain. Patient was resting comfortably this morning when she was woken up at 0300 by severe substernal chest discomfort. She states "it felt like a ball in the middle of my chest burst and radiated pain across my chest and into my abdomen". The pain lasted approximately 2 minutes then resolved on its own. She was able to fall back to sleep and woke up around 0630. She was preparing breakfast when she had a recurrence of the chest pain. It was substernal, less severe than before. She had associated weakness, diaphoresis, dizziness and chills. She sat down in her recliner chair and the pain resolved after appx 10 minutes. Patient with no personal history of CAD. She is active - walks approximately 2 miles on three days/week. She does not have exertional symptoms - no CP/SOB/dizziness. She does become symptomatic when she is in atrial fibrillation - describes it as being "spacy". Patient presently chest pain free. No additional complaints at this time. Rapid antigen testing for Covid-19 NEGATIVE Patient masked during encounter ER Course: NSS x 500mL Allergies Allergy/AdvReac Type Severity Reaction Status Date / Time celecoxib Allergy Unknown RASH Verified 01/26/20 10:19 Sulfa (Sulfonamide Allergy Unknown UNKNOWN Verified 01/26/20 10:19 Antibiotics) RXN TO SULFA DRUGS Home Medications Medication Instructions Recorded Confirmed Type apixaban [Eliquis] 5 mg PO BID 01/26/20 01/26/20 History atorvastatin 20 mg PO QPM 01/26/20 01/26/20 History diphenhydramine-acetaminophen 2 tab PO HS PRN 01/26/20 01/26/20 History [Tylenol PM Extra Strength] flecainide 100 mg PO BID 01/26/20 01/26/20 History levothyroxine 75 mcg PO DAILYBB 01/26/20 01/26/20 History metoprolol tartrate 37.5 mg PO BID 01/26/20 01/26/20 History Past Med/Surg History Medical History (Updated 01/26/20 @ 14:42 by Mary Ann Antonio DO) Atrial fibrillation Dyslipidemia Hypertension Surgical History (Updated 01/26/20 @ 14:30 by Mary Ann Antonio DO) History of hysterectomy History of repair of rectocele History of shoulder surgery Family History (Updated 01/26/20 @ 14:27 by Mary Ann Antonio DO) Other Bronchiectasis Social History (Updated 01/26/20 @ 14:28 by Mary Ann Antonio DO) Smoking Status: Never smoker Hx Alcohol Use: No Hx Substance Use: No Preferred Language: Kazakh Communication Ability: Effective Traffic Signal Supervisor Maintenance Required: No Beliefs That Will Affect Care: None Current Living Situation: Spouse Other Information That Helps Us Care for You: No Feels Safe at Home: Yes Safety Concerns: Feels Safe At This Time Assistive Devices: Glasses and Hearing Aid - Bilateral Review of Systems Review of Systems: All systems reviewed & are unremarkable except as noted in HPI & below Physical Exam Physical Exam: General: patient resting comfortably, NAD, non-toxic in appearance, AA&O x 4 Skin: warm, dry, intact, no rashes or lesions, dry skin on LEs, small abrasions on right medial ankle, no bleeding/infection HEENT: NC/AT, PERRL, EOMI, anicteric sclera, conjunctiva without injection, external ear normal to inspection and nontender, nares patent, moist mucus membranes, dentition intact, no oropharyngeal lesions, neck supple, trachea midline, no LAD, no thyromegaly, no JVD Heart: +S1/S2, regular, 2/6 blowing murmur at LSB, no rubs/gallops Lungs: equal air entry bilaterally, no rales/rhonchi/wheezes Abd: +BS, soft, NT/ND, no masses/organomegaly/ascites Ext: warm, 2+ pulses in UE/LE bilaterally, no clubbing/cyanosis or edema Neuro: nonfocal, patient AA&O x 4, speech intact, no facial droop, moving all extremities on command with equal strength 5/5, ambulates without difficulty Results & Data Results & Data ([facility]) Vital Signs (Past 12 Hours) Vital Signs Temp Pulse Pulse Resp BP BP Pulse Ox 01/26/20 12:05 67 18 154/95 H 98 01/26/20 11:09 98 01/26/20 10:05 36.5 C 65 18 147/97 H 98 Laboratory Results Lab Results 01/26/20 01/26/20 01/26/20 Range/Units 11:27 11:27 11:27 WBC 8.44 (4.8-10.8) K/uL RBC 4.16 L (4.2-5.4) M/uL Hgb 13.0 (12.0-16.0) g/dL POC Hgb (12.0-16.0) g/dl Hct 39.8 (37-47) % POC Hct (37-47) % MCV 95.7 (80-100) fL MCH 31.3 (25-34) pg MCHC 32.7 (32-36) g/dL RDW Std Deviation 42.8 (36.4-46.3) fL RDW Coeff of Manav 12.2 (11.5-14.5) % Plt Count 202 (130-400) K/uL MPV 11.1 H (7.4-10.4) fL Immature Gran % (Auto) 0.1 % Neut % (Auto) 80.6 % Lymph % (Auto) 10.4 % Quay % (Auto) 7.0 % Eos % (Auto) 1.7 % Baso % (Auto) 0.2 % Neut # (Auto) 6.80 H (1.4-6.5) K/uL Lymph # (Auto) 0.88 L (1.2-3.4) K/uL Quay # (Auto) 0.59 (0.11-0.59) K/uL Eos # (Auto) 0.14 (0-0.5) K/uL Baso # (Auto) 0.02 (0-0.2) K/uL Immature Gran # (Auto) 0.01 (0.00-0.02) K/uL PT 10.6 (9.0-12.0) Seconds INR 1.0 (0.9-1.1) APTT 24.6 (21.0-31.0) Seconds PTT Ratio 0.9 POC Sodium (135-144) mmol/L Sodium 141 (136-145) mmol/L POC Potassium (3.3-5.0) mmol/L Potassium 5.1 (3.5-5.1) mmol/L POC Chloride (101-112) mmol/L Chloride 108 H (98-107) mmol/L Carbon Dioxide 29 (21-32) mmol/L POC Total CO2 (24-31) mmol/L Anion Gap 4.0 (3-11) POC Anion Gap (16-25) mmol/L POC BUN (7-18) mg/dl BUN 18 (7-18) mg/dl Creatinine 0.76 (0.6-1.2) mg/dl POC Creatinine (0.6-1.3) mg/dl Est Cr Clr Drug Dosing 52.5 ml/min Est GFR ( Amer) 84.1 Est GFR (Non-Af Amer) 72.5 BUN/Creatinine Ratio 23.4 H (10-20) Glucose 107 H (70-99) mg/dl POC Glucose (other) (70-99) mg/dl Calcium 8.9 (8.5-10.1) mg/dl POC Ioniz Calcium Michelle (1.12-1.32) mmol/l Magnesium (1.8-2.4) mg/dl Total Bilirubin 0.4 (0.2-1) mg/dl AST 33 (15-37) U/L ALT 35 (12-78) U/L Alkaline Phosphatase 69 (45-117) U/L Total Creatine Kinase 42 (26-192) U/L CK-MB (CK-2) 1.1 (0.5-3.6) ng/ml CK/CKMB % Calc 2.6 (0-3.0) Troponin I 0.020 (0-0.045) ng/ml Total Protein 6.6 (6.4-8.2) gm/dl Albumin 3.4 (3.4-5.0) gm/dl Globulin 3.2 (2.5-4.0) gm/dl Albumin/Globulin Ratio 1.1 (0.9-2) Lipase 243 (73-393) U/L SARS-CoV-2 Ag (Rapid) (Negative) 01/26/20 01/26/20 01/26/20 Range/Units 11:46 13:11 13:15 WBC (4.8-10.8) K/uL RBC (4.2-5.4) M/uL Hgb (12.0-16.0) g/dL POC Hgb 13.3 (12.0-16.0) g/dl Hct (37-47) % POC Hct 39 (37-47) % MCV (80-100) fL MCH (25-34) pg MCHC (32-36) g/dL RDW Std Deviation (36.4-46.3) fL RDW Coeff of Manav (11.5-14.5) % Plt Count (130-400) K/uL MPV (7.4-10.4) fL Immature Gran % (Auto) % Neut % (Auto) % Lymph % (Auto) % Quay % (Auto) % Eos % (Auto) % Baso % (Auto) % Neut # (Auto) (1.4-6.5) K/uL Lymph # (Auto) (1.2-3.4) K/uL Quay # (Auto) (0.11-0.59) K/uL Eos # (Auto) (0-0.5) K/uL Baso # (Auto) (0-0.2) K/uL Immature Gran # (Auto) (0.00-0.02) K/uL PT (9.0-12.0) Seconds INR (0.9-1.1) APTT (21.0-31.0) Seconds PTT Ratio POC Sodium 141 (135-144) mmol/L Sodium (136-145) mmol/L POC Potassium 5.1 H (3.3-5.0) mmol/L Potassium (3.5-5.1) mmol/L POC Chloride 104 (101-112) mmol/L Chloride (98-107) mmol/L Carbon Dioxide (21-32) mmol/L POC Total CO2 28 (24-31) mmol/L Anion Gap (3-11) POC Anion Gap 15.0 L (16-25) mmol/L POC BUN 18 (7-18) mg/dl BUN (7-18) mg/dl Creatinine (0.6-1.2) mg/dl POC Creatinine 0.7 (0.6-1.3) mg/dl Est Cr Clr Drug Dosing ml/min Est GFR ( Amer) Est GFR (Non-Af Amer) BUN/Creatinine Ratio (10-20) Glucose (70-99) mg/dl POC Glucose (other) 107 H (70-99) mg/dl Calcium (8.5-10.1) mg/dl POC Ioniz Calcium Michelle 1.19 (1.12-1.32) mmol/l Magnesium 2.1 (1.8-2.4) mg/dl Total Bilirubin (0.2-1) mg/dl AST (15-37) U/L ALT (12-78) U/L Alkaline Phosphatase (45-117) U/L Total Creatine Kinase (26-192) U/L CK-MB (CK-2) (0.5-3.6) ng/ml CK/CKMB % Calc (0-3.0) Troponin I 0.018 (0-0.045) ng/ml Total Protein (6.4-8.2) gm/dl Albumin (3.4-5.0) gm/dl Globulin (2.5-4.0) gm/dl Albumin/Globulin Ratio (0.9-2) Lipase (73-393) U/L SARS-CoV-2 Ag (Rapid) (Negative) 01/26/20 01/26/20 Range/Units 13:15 Unknown WBC (4.8-10.8) K/uL RBC (4.2-5.4) M/uL Hgb (12.0-16.0) g/dL POC Hgb (12.0-16.0) g/dl Hct (37-47) % POC Hct (37-47) % MCV (80-100) fL MCH (25-34) pg MCHC (32-36) g/dL RDW Std Deviation (36.4-46.3) fL RDW Coeff of Manav (11.5-14.5) % Plt Count (130-400) K/uL MPV (7.4-10.4) fL Immature Gran % (Auto) % Neut % (Auto) % Lymph % (Auto) % Quay % (Auto) % Eos % (Auto) % Baso % (Auto) % Neut # (Auto) (1.4-6.5) K/uL Lymph # (Auto) (1.2-3.4) K/uL Quay # (Auto) (0.11-0.59) K/uL Eos # (Auto) (0-0.5) K/uL Baso # (Auto) (0-0.2) K/uL Immature Gran # (Auto) (0.00-0.02) K/uL PT (9.0-12.0) Seconds INR (0.9-1.1) APTT (21.0-31.0) Seconds PTT Ratio POC Sodium (135-144) mmol/L Sodium (136-145) mmol/L POC Potassium (3.3-5.0) mmol/L Potassium (3.5-5.1) mmol/L POC Chloride (101-112) mmol/L Chloride (98-107) mmol/L Carbon Dioxide (21-32) mmol/L POC Total CO2 (24-31) mmol/L Anion Gap (3-11) POC Anion Gap (16-25) mmol/L POC BUN (7-18) mg/dl BUN (7-18) mg/dl Creatinine (0.6-1.2) mg/dl POC Creatinine (0.6-1.3) mg/dl Est Cr Clr Drug Dosing ml/min Est GFR ( Amer) Est GFR (Non-Af Amer) BUN/Creatinine Ratio (10-20) Glucose (70-99) mg/dl POC Glucose (other) (70-99) mg/dl Calcium (8.5-10.1) mg/dl POC Ioniz Calcium Michelle (1.12-1.32) mmol/l Magnesium (1.8-2.4) mg/dl Total Bilirubin (0.2-1) mg/dl AST (15-37) U/L ALT (12-78) U/L Alkaline Phosphatase (45-117) U/L Total Creatine Kinase (26-192) U/L CK-MB (CK-2) (0.5-3.6) ng/ml CK/CKMB % Calc (0-3.0) Troponin I 0.024 (0-0.045) ng/ml Total Protein (6.4-8.2) gm/dl Albumin (3.4-5.0) gm/dl Globulin (2.5-4.0) gm/dl Albumin/Globulin Ratio (0.9-2) Lipase (73-393) U/L SARS-CoV-2 Ag (Rapid) Negative (Negative) Diagnostic Findings XR chest 1V portable HISTORY: Atypical Chest Pain COMPARISON: Chest 12/05/2016. FINDINGS: The lungs are clear. The cardio silhouette is top normal in size. This remains unchanged. No pleural effusions. No pneumothorax. IMPRESSION: No significant change compared to the prior study. No acute process. ACT 112: Negative or not required by law. Electronically signed by: Sumanth Pascual M.D. 01/26/2020 11:34 AM Dictated: 01/26/201131Transcribed: 01/26/[address] ANGIOGRAPHY OF THE CHEST, PULMONARY EMBOLUS PROTOCOL CLINICAL HISTORY: Chest pain. Evaluate for pulmonary embolus. COMPARISON STUDY: Chest radiograph November 05, 2016 and January 26, 2020. TECHNIQUE: Following IV administration of 120 mL of Optiray-320, helical axial images of the chest were obtained utilizing the pulmonary embolus protocol. Maximal intensity projections and sagittal and coronal reformats were viewed on an independent 3D workstation. IV contrast was administered without complication. Automated exposure control was utilized for the study. A dose lowering technique was utilized adhering to the principles of ALARA. CT DOSE: 291.24 mGy.cm FINDINGS: No pulmonary emboli identified. There is moderate cardiomegaly. No pericardial effusion is noted. Borderline enlarged right infrahilar lymph node on image 143 of 360 measures 0.8 cm in short axis diameter. No pneumothorax or pleural effusion is noted. Note is made of a 7 mm subpleural nodule within the right lower lobe with mild adjacent groundglass opacity. There is also a 9 mm groundglass opacity within the right lower lobe on image 66. A 0.6 x 0.3 cm subpleural lingular nodule on image 168 is likely benign. No acute fracture or suspicious lesion within the bony thorax is noted. Upper abdomen is unremarkable. IMPRESSION: 1. No pulmonary emboli identified. 2. Moderate cardiomegaly. 3. 9 mm groundglass opacity within the right lower lobe and a 7 mm subpleural nodule within the right lower lobe with mild adjacent groundglass opacity. These may reflect an infectious process. However, a follow-up chest CT in 6 months is recommended as pulmonary nodules could appear similar. ACT 112: Negative or not required by law. Electronically signed by: Edgardo Barker M.D. 01/26/2020 12:32 PM Dictated: 01/26/203Transcribed: 01/26/201222 ECG Additional Comments: EKG with SR at 66, 1st degree AV block with XO=442hx, TPQ=195, KOx=015. No acute ischemic changes PG Care Time/CCT Total # of Minutes Spent Total Time Spent with Patient: Total time spent is greater than 50% in coordination of care (as documented) at patient's floor/unit and/or counseling patient: Coding Level of Care Code 53495 OBS Care - Level 3 Diagnoses Chest pain R07.9 Chest pain type: unspecified Atrial fibrillation I48.20 Atrial fibrillation type: unspecified chronic Hypertension I10 Hypertension type: essential hypertension Pulmonary nodule R91.1 (1) Hypertension Hypertension type: essential hypertension Qualified Code(s): I10 - Essential (primary) hypertension (2) Atrial fibrillation Atrial fibrillation type: unspecified chronic Qualified Code(s): I48.20 - Chronic atrial fibrillation, unspecified (3) Chest pain Chest pain type: unspecified Qualified Code(s): R07.9 - Chest pain, unspecified
[2020-01-26] MEDS: METOPROLOL TARTRATE 25 MG TAB PO SCH (19:00)
[2020-01-26] MEDS: FLECAINIDE ACETATE 100 MG TABLET PO SCH (20:35)
[2020-01-26] MEDS: APIXABAN 5 MG TABLET PO SCH (20:35)
[2020-01-26] MEDS ORDERED: ATORVASTATIN 20 MG TAB PO SCH (21:00)
--- NOTE | 2020-01-26 21:41 | Electrocardiogram Report ---
Test Reason : Blood Pressure : / mmHG Vent. Rate : 066 BPM Atrial Rate : 066 BPM P-R Int : 258 ms QRS Dur : 108 ms QT Int : 462 ms P-R-T Axes : 077 069 066 degrees QTc Int : 484 ms Sinus rhythm with 1st degree A-V block Possible Left atrial enlargement Prolonged QT Borderline ECG When compared with ECG of 05-DEC-2016 15:34, Sinus rhythm has replaced Atrial fibrillation Confirmed by Mj Moncada ([id number]) on 01/26/2020 9:40:43 PM Referred By: REFERRED SELF Confirmed By:Mj Moncada
--- NOTE | 2020-01-26 21:53 | Electrocardiogram Report ---
Test Reason : Blood Pressure : / mmHG Vent. Rate : 066 BPM Atrial Rate : 066 BPM P-R Int : 254 ms QRS Dur : 112 ms QT Int : 478 ms P-R-T Axes : 070 071 067 degrees QTc Int : 501 ms Sinus rhythm with 1st degree A-V block Possible Left atrial enlargement Prolonged QT Abnormal ECG When compared with ECG of 26-JAN-2020 10:03, No significant change Confirmed by Mj Moncada ([id number]) on 01/26/2020 9:52:56 PM Referred By: REFERRED SELF Confirmed By:Mj Moncada
[2020-01-27] MEDS ORDERED: LEVOTHYROXINE SODIUM 75 MCG TABLET PO SCH (06:30)
[2020-01-27 07:58] LABS: Basophils # (auto) 0.02 K/uL (0-0.2); Basophils % (auto) 0.3 %; Eosinophils # (auto) 0.25 K/uL (0-0.5); Hematocrit (blood only) 39.1 % (37-47); Hemoglobin 12.7 g/dL (12.0-16.0); Immature Granulocytes # (auto) 0.01 K/uL (0.00-0.02); Immature Granulocytes % (auto) 0.2 %; Lymphocytes % (auto) 22.4 %; Mean Corpuscular Hemoglobin 30.9 pg (25-34); Mean Corpuscular Hgb Conc 32.5 g/dL (32-36); Mean Corpuscular Volume 95.1 fL (80-100); Mean Platelet Volume 11.4 fL (7.4-10.4); Monocytes # (auto) 0.66 K/uL (0.11-0.59); Monocytes % (auto) 10.5 %; Neutrophils # (auto) 3.92 K/uL (1.4-6.5); Neutrophils % (auto) 62.6 %; Platelet Count 187 K/uL (130-400); RDW Coefficient of Variation 12.3 % (11.5-14.5); RDW Standard Deviation 42.5 fL (36.4-46.3); Red Blood Count 4.11 M/uL (4.2-5.4); White Blood Count 6.26 K/uL (4.8-10.8)
[2020-01-27] MEDS: APIXABAN 5 MG TABLET PO SCH (08:32)
[2020-01-27] MEDS: FLECAINIDE ACETATE 100 MG TABLET PO SCH (08:32)
[2020-01-27] MEDS: METOPROLOL TARTRATE 25 MG TAB PO SCH (08:32)
--- NOTE | 2020-01-27 09:02 | XCELERA ---
[id number]
[2020-01-27 09:38] LABS: BUN Creatinine Ratio 19.2 (10-20); Blood Urea Nitrogen 14 mg/dl (7-18); Calcium 8.5 mg/dl (8.5-10.1); Carbon Dioxide 30 mmol/L (21-32); Chloride 109 mmol/L (98-107); Creatinine Clr Calc Pharmacy 53.2 ml/min; Est GFR (African American) 85.4; Est GFR (Non-African American) 73.7; Glucose 86 mg/dl (70-99); Potassium 4.1 mmol/L (3.5-5.1); Sodium 140 mmol/L (136-145)
[2020-01-27 09:46] LABS: Troponin I < 0.015 ng/ml (0-0.045)
--- NOTE | 2020-01-27 09:52 | Cardiology Consultation ---
Date of Consultation January 27, 2020 Assessment & Plan (1) Atrial fibrillation: She seems to have minimal symptoms of atrial fibrillation, she may have asymptomatic episodes but as long as she does not feel them and she is protected with anticoagulation I would not alter her current management. (2) Chest pain: I am not sure what was causing her chest discomfort, there is nothing very specific and I certainly do not think it was a cardiac event based both on the symptoms and on our findings. I do not think it was an aortic dissection although I cannot tell from the report whether that was conclusively excluded on the CT scan but that seems a very remote. At this point I do not have any further suggestions for evaluation. History of Present Illness Reason for Consultation: Chest pain, abnormal troponin Attending Physician: Zion Lan History of Present Illness This is an 84-year-old woman who has a history of atrial fibrillation going back to 2005 when she presented with atrial flutter with a rapid ventricular response. Subsequently she has been documented to have paroxysmal atrial fibrillation although her symptoms are fairly minimal and were not associated with presyncope or syncope during the arrhythmia. She was initially maintained on sotalol and on Coumadin. She did have a TIA in January of 2009, since then she has been anticoagulated. On February 21, 2010 I evaluated her for periods of presyncope that she had for the preceding year. She is not sure of the exact onset but she believes it was the end of 2008, she had between 5 and 8 distinct episodes fairly randomly spaced over that time period. They typically lasted one to 2 minutes, although after one episode she had a period of time where she felt fairly weak and her noted that her blood pressure was 190 systolic with a heart rate in the 70s.. The presyncopal episode had clearly passed by then however. She has had the episodes both while standing and while sitting, while being active and while being inactive. She did not have symptoms of palpitations, chest discomfort, shortness of breath but did have symptoms of vision problems and feeling as though she would lose consciousness but never did. We did a tilt test on February 22, 2010, the test was markedly positive with her becoming unresponsive and having a nonpalpable blood pressure after about 15 minutes. Her heart rate did drop to the mid 50s and therefore the test was suggestive of either a vagal response or a combination of orthostasis and bradycardia with innappropriate heart rate response. At that time I switched her from sotalol to a combination of flecainide and diltiazem hoping to eliminate the bradycardic effect of the sotalol. She describes an episode of not being able to speak for about 15-20 seconds one week before her visit in September of 2011, she thought she could speak but when the words came out it was just noises. That completely resolved after 15-20 seconds. This was worrisome in view of her history of TIA. a carotid ultrasound did not demonstrate significant disease. She then had a another unusual episode on February 28, 2012, this appeared to be a central vision loss in both eyes and then she went to the ER where no abnormality was identified but the symptoms had passed by then, they lasted perhaps 15 minutes. She is confident she had not forgotten to take her Pradaxa. Subsequently she was started on aspirin 81 mg daily. After starting the flecainide 50 mg BID and the diltiazem she may have had a few mild episodes, widely spaced, but had no severe episodes, until she was subsequently hospitalized February 13, 2015 for another episode of atrial flutter with rapid heart rate, she was seen by one of my partners at the time and her flecainide was increased to 100 mg twice a day and her calcium kurt was switched to a beta-kurt and she remained on Pradaxa at the time. Subsequently she was evidently lost to follow-up and we have not seen her since. She presents now with an unusual set of symptoms, she describes waking up at 3 AM with a very uncomfortable feeling in the middle of her chest which radiated out from there to her arms and legs and head, she describes it as a ball exploding in her chest. She did not have hemodynamic symptoms. This resolved after several minutes and she went back to sleep. She then woke up in the morning with a different type of chest discomfort and just feeling very poorly, rescue was called and I believe no arrhythmia was identified although I do not see the report, she is brought to the emergency room where no specific abnormality was identified and she was not in atrial fibrillation when she arrived. She has had no further symptoms, the duration of this episode was probably on the order of 15 minutes but perhaps a little bit longer. Cardiac enzymes were drawn here and are negative x3, although the first is 0.024 at the next 2 are less than 0.015 suggesting something may have happened but certainly not suggestive of a primary ischemic event and all within the normal range. She has remained on flecainide 100 mg twice a day and Toprol tartrate 37.5 twice a day as well as Eliquis as an anticoagulant. This morning she feels well, she has had no further symptoms, has had no lightheadedness or dizziness and no complaints. Allergies Allergy/AdvReac Type Severity Reaction Status Date / Time celecoxib Allergy Unknown RASH Verified 01/26/20 10:19 Sulfa (Sulfonamide Allergy Unknown UNKNOWN Verified 01/26/20 10:19 Antibiotics) RXN TO SULFA DRUGS Home Medications Medication Instructions Recorded Confirmed Type apixaban [Eliquis] 5 mg PO BID 01/26/20 01/26/20 History atorvastatin 20 mg PO QPM 01/26/20 01/26/20 History diphenhydramine-acetaminophen 2 tab PO HS PRN 01/26/20 01/26/20 History [Tylenol PM Extra Strength] flecainide 100 mg PO BID 01/26/20 01/26/20 History levothyroxine 75 mcg PO DAILYBB 01/26/20 01/26/20 History metoprolol tartrate 37.5 mg PO BID 01/26/20 01/26/20 History Patient History Medical History Atrial fibrillation Dyslipidemia Hypertension Surgical History History of hysterectomy History of repair of rectocele History of shoulder surgery Family History Other Bronchiectasis Social History Smoking Status: Never smoker Hx Alcohol Use: No Hx Substance Use: No Preferred Language: Kenyan Communication Ability: Effective Residential Concierge Required: No Beliefs That Will Affect Care: None Current Living Situation: Spouse Feels Safe at Home: Yes Assistive Devices: None Review of Systems Review of Systems: All systems reviewed & are unremarkable except as noted in HPI & below Physical Exam Physical Exam: Constitutional: Alert, cooperative and in no distress. HEENT: Unremarkable Neck: No jugular venous distention, carotid pulses are normal and equal bilaterally without bruits. Pulmonary: Clear to auscultation bilaterally. Cardiac: Regular rhythm with no murmur, gallop or rub. Abdomen: Soft, nontender with normal bowel sounds. Extremities: No edema. Distal pulses intact. Neurologic: No focal findings. Gait is steady. Skin: No rash, ecchymoses or petechiae. Results & Data ([facility]) Vital Signs (Past 12 Hours) Vital Signs Temp Pulse Pulse Resp BP BP Pulse Ox 01/27/20 07:12 36.9 C 62 18 135/79 95 01/27/20 04:00 36.8 C 65 18 131/71 94 01/27/20 00:00 36.4 C L 67 18 153/78 H 94 01/26/20 22:20 62 Laboratory Results Cardiac Enzymes 01/26/20 01/26/20 01/26/20 Range/Units 11:27 13:15 13:15 AST 33 (15-37) U/L CK-MB (CK-2) 1.1 (0.5-3.6) ng/ml Troponin I 0.020 0.018 0.024 (0-0.045) ng/ml 01/26/20 01/27/20 Range/Units 21:05 07:18 AST (15-37) U/L CK-MB (CK-2) (0.5-3.6) ng/ml Troponin I < 0.015 < 0.015 (0-0.045) ng/ml Coagulation 01/26/20 Range/Units 11:27 PT 10.6 (9.0-12.0) Seconds APTT 24.6 (21.0-31.0) Seconds CBC 01/26/20 01/27/20 Range/Units 11:27 07:18 WBC 8.44 6.26 (4.8-10.8) K/uL RBC 4.16 L 4.11 L (4.2-5.4) M/uL Hgb 13.0 12.7 (12.0-16.0) g/dL Hct 39.8 39.1 (37-47) % Plt Count 202 187 (130-400) K/uL Neut # (Auto) 6.80 H 3.92 (1.4-6.5) K/uL Lymph # (Auto) 0.88 L 1.40 (1.2-3.4) K/uL Sharp # (Auto) 0.59 0.66 H (0.11-0.59) K/uL Eos # (Auto) 0.14 0.25 (0-0.5) K/uL Baso # (Auto) 0.02 0.02 (0-0.2) K/uL Comprehensive Metabolic Panel 01/26/20 01/27/20 Range/Units 11:27 07:18 Sodium 141 140 (136-145) mmol/L Potassium 5.1 4.1 D (3.5-5.1) mmol/L Chloride 108 H 109 H (98-107) mmol/L Carbon Dioxide 29 30 (21-32) mmol/L BUN 18 14 (7-18) mg/dl Creatinine 0.76 0.75 (0.6-1.2) mg/dl Glucose 107 H 86 (70-99) mg/dl Calcium 8.9 8.5 (8.5-10.1) mg/dl AST 33 (15-37) U/L ALT 35 (12-78) U/L Alkaline Phosphatase 69 (45-117) U/L Total Protein 6.6 (6.4-8.2) gm/dl Albumin 3.4 (3.4-5.0) gm/dl Intake and Output 01/26/20 01/27/20 01/27/20 22:59 06:59 14:59 Intake Total 400 / 900 Balance 400 / 900 Intake: Oral 400 / 400 Other: Other Intake Source NPO Weight 66.5 kg Weight Measurement Method Standing Scale Diagnostic Findings An electrocardiogram was done on presentation January 26, 2020 at 10 AM which showed sinus rhythm at 66 bpm with first-degree AV block and mildly prolonged QT (probably due to flecainide) and no abnormalities otherwise. This was repeated 2 hours later and is virtually identical. An echocardiogram was done this morning which shows normal left ventricular systolic function, mild left atrial dilatation, moderate mitral regurgitation with normal right ventricular systolic pressure. A chest x-ray done on arrival is unremarkable, a chest CT done to evaluate for pulmonary embolism on arrival is also unremarkable. PG Care Time/CCT Total # of Minutes Spent Total Time Spent with Patient: Total time spent is greater than 50% in coordination of care (as documented) at patient's floor/unit and/or counseling patient: Coding Level of Care Code 67016 OBS Care - Level 3 Diagnoses Atrial fibrillation I48.20 Atrial fibrillation type: unspecified chronic Chest pain R07.9 Chest pain type: unspecified (1) Atrial fibrillation Atrial fibrillation type: unspecified chronic Qualified Code(s): I48.20 - Chronic atrial fibrillation, unspecified (2) Chest pain Chest pain type: unspecified Qualified Code(s): R07.9 - Chest pain, unspecified
--- NOTE | 2020-01-31 08:49 | Discharge Summary ---
Date of Service January 27, 2020 Admission HPI Per Admitting Provider Liane Cam is a pleasant 84yo C female with history of HTN on Apixaban and Flecainide therapy, HTN presenting with chest pain. Patient was resting comfortably this morning when she was woken up at 0300 by severe substernal chest discomfort. She states "it felt like a ball in the middle of my chest burst and radiated pain across my chest and into my abdomen". The pain lasted approximately 2 minutes then resolved on its own. She was able to fall back to sleep and woke up around 0630. She was preparing breakfast when she had a recurrence of the chest pain. It was substernal, less severe than before. She had associated weakness, diaphoresis, dizziness and chills. She sat down in her recliner chair and the pain resolved after appx 10 minutes. Patient with no personal history of CAD. She is active - walks approximately 2 miles on three days/week. She does not have exertional symptoms - no CP/SOB/dizziness. She does become symptomatic when she is in atrial fibrillation - describes it as being "spacy". Patient presently chest pain free. No additional complaints at this time. Rapid antigen testing for Covid-19 NEGATIVE Patient masked during encounter ER Course: NSS x 500mL Principal Diagnosis chest pain Discharge Exam General: patient resting comfortably, NAD, non-toxic in appearance, AA&O x 4 Skin: warm, dry, intact, no rashes or lesions, dry skin on LEs, small abrasions on right medial ankle, no bleeding/infection HEENT: NC/AT, PERRL, EOMI, anicteric sclera, neck supple, trachea midline, no LAD, no thyromegaly, no JVD Heart: +S1/S2, regular, 2/6 blowing murmur at LSB, no rubs/gallops Lungs: equal air entry bilaterally, no rales/rhonchi/wheezes Abd: +BS, soft, NT/ND, no masses/organomegaly/ascites Ext: warm, 2+ pulses in UE/LE bilaterally, no clubbing/cyanosis or edema Neuro: nonfocal, patient AA&O x 4, speech intact, no facial droop, moving all extremities Discharge Data Allergies Allergy/AdvReac Type Severity Reaction Status Date / Time celecoxib Allergy Unknown RASH Verified 01/26/20 10:19 Sulfa (Sulfonamide Allergy Unknown UNKNOWN Verified 01/26/20 10:19 Antibiotics) RXN TO SULFA DRUGS Consultations 01/26/20 13:39 ED Decision to Admit Stat 01/27/20 08:36 Consult Cardiology Routine Ordered Studies 01/26/20 10:48 CT angio chest PE protocol Stat Hospital Course (1) Chest pain: Liane Cam is an 84yo C female presenting with SSCP that woke her from sleep. EKG with no acute changes. Troponin is detectable although within normal range (0.02 --> 0.018 --> 0.024). CTA with no pulmonary emboli but she does have a 9mm groundglass opacity in the RLL and a 7mm subpleural nodule in the RLL with adjacent groundglass opacities. Covid-19 rapid antigen testing is NEGATIVE. -Observation to medical floor with telemetry -Continue to trend troponin q 8 hours which were negative -Continue Metoprolol 37.5mg po BID -Continue Atorvastatin -Cardiology consult: which given her history does not appear to be cardiac related. No significant changes on echocardiogram noted. will discharge patient. (2) Atrial fibrillation: Currently in sinus rhythm with 1st degree AV block. Flecainide level pending. 1st degree AV block and slightly prolonged QT interval (478ms) present on EKG from 01/2015 as well -Continue Flecainide 100mg po BID -Continue Apixaban 5mg po BID -Continue Metoprolol 37.5mg po BID (3) Hypertension: Blood pressure stable -Continue Metoprolol 37.5mg po BID -Continue to monitor (4) Pulmonary nodule: Noted on CTA. Patient is afebrile, denies cough/SOB. No exposure to Covid-19 positive individuals over the last month and patient's rapid Covid-19 antigen test NEGATIVE in the ER today. -Repeat imaging in 6 months recommended F/E/N - [place]. Electrolytes WNL. Heart healthy diet, NPO after midnight for possible stress testing Ppx - On Apixaban 5mg po BID Total Time Total Time Spent Total Time Spent (In Minutes): 32 Total Time Includes: Examination of the Patient, Discharge Planning and Medication Reconciliation Discharge Plan Discharge Items Patient Disposition: Home - Self-Care Reason For Visit: CHEST PAIN Discharge Diagnosis: chest pain Activity: Resume your previous activity Non-emergency contact: Primary Care Provider Call non-emergency contact if: you have any medication questions Follow-up/Referrals: Brad Torres MD [Primary Care Provider] - Diet: Regular Addtl Attending Provider Instructions: You have been hospitalized for an acute medical problem. During your stay at [facility], we have made an effort to correct the problem that brought you to the hospital while keeping you as comfortable as possible. Medications were used to bring your condition under control and your discharge instructions will include directions for any medications you should take after leaving the hospital. Please make sure you see your Primary Care Provider as part of your follow up plan. Pending Studies at Discharge: No Stand-Alone Forms: My [facility], Smoking Cessation Medications and DC Order Prescriptions: Continued atorvastatin 20 mg tablet 20 mg PO QPM RF: 0 levothyroxine 75 mcg tablet 75 mcg PO DAILYBB RF: 0 flecainide 100 mg tablet 100 mg PO BID RF: 0 diphenhydramine-acetaminophen [Tylenol PM Extra Strength] 25-500 mg Tablet 2 tab PO HS PRN (Reason: Pain) RF: 0 metoprolol tartrate 25 mg tablet 37.5 mg PO BID RF: 0 Eliquis 5 mg tablet 5 mg PO BID RF: 0 Discharge Orders: Discharge Order (Routine); Ordered 01/27/20 Ordered By: Zion Lan Admission Data Admit Date/Time: 01/26/20 14:16 Attending Provider: Zion Lan Admit Provider: Mary Ann Antonio Primary Care Provider: Brad Torres Other Providers: Mary Ann Antonio ; Max Becerra Other Interventions: Discharge Summary Assessment (RN) Last Done: 01/27/20 14:14 Coding Level of Care Code 70982 OBS Care - Discharge Diagnoses Chest pain R07.9 Chest pain type: unspecified Atrial fibrillation I48.20 Atrial fibrillation type: unspecified chronic Hypertension I10 Hypertension type: essential hypertension Pulmonary nodule R91.1
== END 2020-01-27 15:25 | disposition home or self-care (01) ==
LOC: ED 09:57 → 2N 09:57 → SUATTDRO 14:16 → 2N 15:34

== ENCOUNTER 2020-07-06 11:58 | Observation (INO) ==
--- NOTE | 2020-07-06 12:42 | History & Physical Bridge Note ---
Date of Service July 06, 2020 History & Physical Bridge Note I have examined the patient, reviewed the History & Physical and in the interval since the performance of the History & Physical I have noted the following changes of clinical significance: no changes noted. I reviewed the indications, procedure, risks and alternatives with the patient, answered all questions. Consent obtained. Patient understands and agrees to the procedure. I also reviewed the risks and use of sedation, patient understands and consent obtained.
--- NOTE | 2020-07-06 12:43 | Pre Anesthesia Assessment ---
Date of Service July 06, 2020 Pre Sedation Assessment Vital Signs Temp Pulse Resp BP Pulse Ox 07/06/20 12:23 37 C 63 20 163/88 H 99 Cardiovascular RRR, no murmur, no edema Respiratory normal respiratory effort, lungs clear to auscultation Pre-Sedation Airway Assessment Smoking Status: Never smoker Hx Sleep Apnea: No Short, Thick Neck: No Thyromental Distance: > or= 3.5 Finger Breadths Oral Cavity: + WNL Mallampati Class: III ASA: ASA3 NPO Status Date of Last Intake of Fluids: 07/05/20 Date of Last Intake of Solid Food: 07/05/20 Procedure Planning Contraindications for Sedation: none Current Medications Reviewed: Yes Notes The planned sedation has been discussed with the patient. Informed Consent was obtained. I have identified the patient, determined the appropriateness of sedation and have assessed the patient immediately prior to the procedure. All medicine(s) and interventions are by my order.
[2020-07-06] MEDS ORDERED: BACITRACIN INJ 50,000 UNIT VIAL ONE (12:54)
[2020-07-06] MEDS ORDERED: BACITRACIN OINT 0.9 GM PKT ONE (12:54)
[2020-07-06] MEDS ORDERED: LIDOCAINE HCL 1% 20 ML VIAL ONE (12:54)
[2020-07-06] MEDS ORDERED: fentaNYL citrate 100 MCG/2 ML VIAL ONE (13:08)
[2020-07-06] MEDS ORDERED: MIDAZOLAM HCL 5 MG/ML 1 ML VIAL ONE (13:08)
[2020-07-06] MEDS ORDERED: ACETAMINOPHEN 325 MG TAB PO PRN (14:30)
[2020-07-06] MEDS ORDERED: KETOROLAC TROMETHAMINE 10 MG TABLET PO PRN (14:30)
--- NOTE | 2020-07-06 14:30 | Electrophysiology Report ---
Date of Service July 06, 2020 Electrophysiology Procedure Electrophysiology Procedure Report Preoperative diagnosis: Sick sinus syndrome AV block Postoperative diagnosis: Same Procedure: Dual-chamber pacemaker implantation Linq explant Surgeon: Max Becerra MD Estimated blood loss: 30 cc Complications: None Disposition: [facility] recovery Procedure details: After obtaining informed consent for the procedure, the patient was brought to the laboratory and prepped and draped in the standard sterile manner. The left prepectoral region was anesthetized with 1% lidocaine local anesthetic and left axillary venipuncture was performed by percutaneous technique and a guidewire placed through the left subclavian vein into the superior vena cava. The area was further infiltrated with 1% lidocaine local anesthetic and a 5 cm incision was made parallel to the left clavicle and 2 cm below it and carried down to the anterior pectoralis fascia. A pacemaker pocket was formed by blunt dissection anterior to the pectoralis fascia and a bacitracin-soaked sponge (50,000 units in 50 cc normal saline solution) was placed in the pocket. An 8 [employer] Medtronic lead introducer was placed over the guidewire into the left subclavian vein, the dilator and guidewire were removed and a bipolar active fixation steroid tipped ventricular lead was advanced through the introducer into the superior vena cava. A guidewire was placed through the introducer and the introducer was stripped from the lead and guidewire. Another 8 [employer] Medtronic lead introducer was placed over the guidewire into the left subclavian vein, the dilator and guidewire were removed and a bipolar active fixation steroid tipped atrial lead was advanced through the introducer into the superior vena cava. A guidewire was placed back through the introducer and the introducer was stripped from the lead and guidewire. Using a curved stylette the ventricular lead was advanced through the right ventricular outflow tract into the pulmonary artery and then using a straight stylette was positioned in the right ventricular apex. The screw was extended fixing the lead in position. Pacing and sensing thresholds were evaluated in bipolar configuration and are recorded on the implant data sheet. Using a curved stylette the atrial lead was positioned in the region of the atrial appendage and the screw extended fixing the lead in position. Pacing and sensing thresholds were evaluated in bipolar configuration and are recorded on the implant data sheet. Once the leads were in position they were attached to the anterior pectoralis fascia using 2 sutures of 2-0 silk around each lead collar. The bacitracin-soake d sponge was removed from the pocket, hemostasis was obtained, the pacemaker was attached to the leads and placed in the pocket with the leads coiled beneath it. The incision was closed with a running double subcutaneous closure of 3-0 Vicryl absorbable suture, followed by running subcuticular skin closure of 4-0 Vicryl absorbable suture. Bacitracin ointment was placed on the incision and a dressing applied. The location of the loop recorder was identified by palpation. She had been prepped and draped in the standard sterile manner for a loop recorder removal prior to pacemaker implantation. The area was infiltrated with 1% lidocaine local anesthetic and a 1 cm incision was made through the old implant scar and carried down to the loop recorder. The loop recorder was dissected free of tissue and explanted. The incision was closed with a subcutaneous continuous closure of 4-0 Vicryl followed by running subcuticular skin closure of 4-0 Vicryl. A dressing was applied. [facility] codes Indication for Procedure (1) AV block, Mobitz 2: (2) Sinus arrest: Pacing Procedure 1: Pacin Insert/Replace Pacer A & V Implantable Monitors Procedure 1: Implantable Monitors: [id number] Loop Recorder Explant PG Moderate Sedation Codes Moderate Sedation Codes Procedure 1: Sedation/Anesthesia: 51623 Mod Sedation by the same physician;Init15 Min Child Age 5 & Up Procedure 2: Sedation/Anesthesia: 02900 Mod Sedation by the same physician; Ea Addit ional15 Minutes
[2020-07-06] MEDS ORDERED: diphenhydrAMINE Capsule 25 MG CAP PO PRN (14:43)
[2020-07-06] MEDS ORDERED: ACETAMINOPHEN 500 MG TAB PO PRN (14:45)
[2020-07-06] MEDS: METOPROLOL TARTRATE 25 MG TAB PO SCH (17:36)
[2020-07-06] MEDS: FLECAINIDE ACETATE 100 MG TABLET PO SCH (17:37)
[2020-07-06] MEDS ORDERED: PANTOprazole 40 MG TAB PO SCH (21:00)
[2020-07-06] MEDS ORDERED: ATORVASTATIN 20 MG TAB PO SCH (21:00)
[2020-07-06] MEDS ORDERED: ASPIRIN 81 MG ECTAB PO SCH (21:00)
[2020-07-07] MEDS ORDERED: LEVOTHYROXINE SODIUM 75 MCG TABLET PO SCH (06:30)
[2020-07-07] MEDS: METOPROLOL TARTRATE 25 MG TAB PO SCH (08:12)
[2020-07-07] MEDS: FLECAINIDE ACETATE 100 MG TABLET PO SCH (08:14)
[2020-07-07] MEDS ORDERED: MAGNESIUM OXIDE 400 MG TAB PO SCH (09:00)
[2020-07-07] MEDS ORDERED: VITAMIN B COMPLEX TAB PO SCH (09:00)
[2020-07-07] MEDS ORDERED: CHOLECALCIFEROL 1,000 UNITS 25 MCG TAB PO SCH (09:00)
--- NOTE | 2020-07-07 09:11 | Electrocardiogram Report ---
Test Reason : Blood Pressure : / mmHG Vent. Rate : 086 BPM Atrial Rate : 288 BPM P-R Int : 000 ms QRS Dur : 090 ms QT Int : 386 ms P-R-T Axes : 000 062 063 degrees QTc Int : 461 ms Atrial fibrillation Abnormal ECG When compared with ECG of 26-JAN-2020 12:18, Atrial fibrillation has replaced Sinus rhythm Confirmed by Jd Luna ([id number]) on 07/07/2020 9:11:07 AM Referred By: Max Becerra Confirmed By:Jd Luna
[2020-07-07] MEDS ORDERED: METOPROLOL TARTRATE 25 MG TAB PO SCH ×2 (09:15→21:00)
--- NOTE | 2020-07-07 09:48 | Cardiology Progress Note ---
Date of Service July 07, 2020 Assessment & Plan (1) Status post placement of cardiac pacemaker: She is doing well postop day #1, she should be stable for discharge today. (2) Atrial fibrillation: She remains in atrial fibrillation, I am going to continue her current dose of flecainide. She was on a higher dose of metoprolol than we had in our records (37.5 mg twice daily instead of 25 mg twice daily). I will make that adjustment. (3) Anticoagulant long-term use: She will need to remain on long-term anticoagulation which was held for surgery. I will restart that this evening, Eliquis 5 mg twice a day. Admission and Anticipated Discharge Date Admission Date: July 06, 2020 Subjective And noteShe is feeling well today, she had minimal incisional discomfort chest discomfort or shortness of breath. Physical Exam Physical Exam: The incision is clean and dry with no significant swelling and minimal ecchymosis. Cardiac rhythm is irregular with no rub Lungs are clear Results & Data ([facility]) Vital Signs (Past 12 Hours) Vital Signs Temp Pulse Pulse Resp BP Pulse Ox 07/07/20 08:00 36.9 C 61 16 104/74 96 07/07/20 04:26 36.6 C 68 16 96/61 L 96 07/06/20 23:59 94 H 07/06/20 22:53 36.9 C 84 18 106/66 97 Laboratory Results Intake and Output 07/06/20 07/07/20 07/07/20 22:59 06:59 14:59 Intake Total 240 / 440 200 / 440 Balance 240 / 440 200 / 440 Intake: Oral 240 / 440 200 / 440 Other: Weight 69.8 kg Weight Measurement Method Standing Scale Diagnostic Findings Telemetry: Atrial fibrillation, rate somewhat fast, occasional pacing appropriately Postop electrocardiogram: Atrial fibrillation with appropriate pacemaker inhibition Pacemaker evaluation: Excellent pacing and sensing characteristics, remains in atrial fibrillation Chest x-ray: Good lead position, no pneumothorax PG Care Time/CCT Total # of Minutes Spent Total Time Spent with Patient: Total time spent is greater than 50% in coordination of care (as documented) at patient's floor/unit and/or counseling patient: Coding Level of Care Code 35876 Post Operative Follow-Up Diagnoses Status post placement of cardiac pacemaker Z95.0 Atrial fibrillation I48.0 Atrial fibrillation type: paroxysmal Anticoagulant long-term use Z79.01 (1) Atrial fibrillation Atrial fibrillation type: paroxysmal Qualified Code(s): I48.0 - Paroxysmal atrial fibrillation
--- NOTE | 2020-07-07 10:08 | XRay Report ---
XR chest 2V PA/lateral CLINICAL HISTORY: Pacemaker insertion. COMPARISON STUDY: Chest radiograph and chest CT January 26, 2020. FINDINGS: There is no pneumothorax following placement of a dual-lead left subclavian pacemaker. Lead tip projects over the right atrial appendage and the right ventricle. There is no evidence for pulmo nary edema. Linear left basilar opacity reflects atelectasis or scarring. Mild cardiomegaly is unchan ged. IMPRESSION: No pneumothorax following placement of a dual-lead left subclavian pacemaker. ACT 112: Negative or not required by law. Electronically signed by: Edgardo Barker M.D. 07/07/2020 10:06 AM
--- NOTE | 2020-07-11 08:09 | Discharge Summary ---
Date of Service July 11, 2020 Admission HPI Per Admitting Provider Mrs. Cam is an 84-year-old female with a history of Paroxysmal Atrial Fibrillation (2005), Atrial Flutter with RVR, TIA 01/2009, Hypertension, Pulmonary Nodule, and Recurrent Syncope s/p [employer] LINQ Implantable Loop Recorder 06/02/20 -- who presents today for her 1 month follow-up in our Device [facility]. Dr. Becerra recommended an Implantable Loop Recorder in order to identify the etiology of her Syncopal Episodes. Loop recorder was implanted the following day on 06/02/20. Patient tolerated this procedure well and has not had implant site complications. Patient has had a couple of episodes both syncope and near syncope since having her device placed. On 06/19/2020 she appeared to have periods of ventricular tachycardia and a 15 second pause (P waves without QRS complexes x 15 second) uncertain if this was a post-conversion pause or not, and she also appears to have post-conversion pauses (1 was recorded at 7 seconds this morning), and periods of 2-1 AV conduction. At this point, a permanent pacemaker is indicated. Also she has episodes of atrial fibrillation, longest episode lasted between 12 to 24 hours. The vast majority of A-Fib episodes last between 2 to 10 minutes. We discussed these findings at length. At this point, a dual chamber pacemaker is indicated. Arrangements will be made to have a dual-chamber pacemaker placed tomorrow at 1 p.m., and she will have her loop recorder explanted at the same time. Laboratories ordered. Rapid COVID test ordered. Dr. Becerra explained , pacemaker procedures done, he discussed the risks, benefits, and potential outcomes of this procedure. Patient agrees to proceed. Patient advised to hold Eliquis until postop. She was advised to stop Flecainide and Metoprolol for the time being. Patient verbalizes understanding of this discussion and these recommendations. Admission Exam Per Admitting Provider Constitutional: Alert, cooperative and in no distress. HEENT: Unremarkable Neck: No jugular venous distention, carotid pulses are normal and equal bilaterally without bruits. Pulmonary: Clear to auscultation bilaterally. Cardiac: Irregular rhythm with no murmur, gallop or rub. Abdomen: Soft, nontender with normal bowel sounds. Extremities: No edema. Distal pulses intact. Neurologic: No focal findings. Gait is steady. Skin: No rash, ecchymoses or petechiae. Principal Diagnosis Sick sinus syndrome with symptomatic bradycardia Discharge Exam The incision is clean and dry with no significant swelling and minimal ecchymosis. Cardiac rhythm is irregular with no rub Lungs are clear Discharge Data Allergies Allergy/AdvReac Type Severity Reaction Status Date / Time celecoxib Allergy Mild RASH Verified 07/05/20 14:23 Sulfa (Sulfonamide Allergy Unknown unknown, Verified 07/05/20 14:23 Antibiotics) happened in childhood Procedures Performed Operation Date: 07/06/20 13:00 Actual Procedures p Pacer with A/V Leads (Dual) - Max Becerra MD s Remove Cardiac Event Recorder - Max Becerra MD Ordered Studies 07/06/20 07:16 CL Cath Imgs for PACS use only Routine 07/06/20 13:09 CL Cath Imgs for PACS use only Routine Hospital Course (1) Status post placement of cardiac pacemaker: She is doing well postop day #1, she should be stable for discharge today. (2) Atrial fibrillation: She remains in atrial fibrillation, I am going to continue her current dose of flecainide. She was on a higher dose of metoprolol than we had in our records (37.5 mg twice daily instead of 25 mg twice daily). I will make that adjustment. (3) Anticoagulant long-term use: She will need to remain on long-term anticoagulation which was held for surgery. I will restart that this evening, Eliquis 5 mg twice a day. Total Time Total Time Spent Total Time Spent (In Minutes): 35 Discharge Plan Discharge Items Patient Disposition: Home - Self-Care Reason For Visit: Tachybrady Syndrome Discharge Diagnosis: Pacemaker implantation Activity: Per Instructions section Lifting: Gradually increase as tolerated Bathing: Keep incision dry Exercise/Sports: Gradually increase as tolerated Driving/Machine Use: No limitations Non-emergency contact: Primary Care Provider Call non-emergency contact if: your symptoms worsen Follow-up/Referrals: Max Becerra MD [Physician] - 07/10/20 10:30 am Brad Torres MD [Primary Care Provider] - 07/12/20 10:00 am Diet: Heart Healthy Addtl Attending Provider Instructions: ACTIVITY RECOMMENDATIONS: * Do not raise affected arm over head for 2 weeks. SPECIAL CARE INSTRUCTIONS: * If bleeding occurs, apply direct pressure to area for 5 minutes. * Call your doctor if you have severe pain, fever, drainage or bleeding at site. * Keep dressing on and dry for 48 hours then remove. * Keep any scheduled doctor's appointment. * Implant Card - hand held device with website information given. SKIN IRRITATION: * You may experience some redness and/or swelling in the area where radiation was administered. If any skin irritation occurs, please contact your family physician. FOLLOW UP VISIT: Keep any scheduled doctor appointments. Pending Studies at Discharge: No Stand-Alone Forms: [facility] Medications and DC Order Prescriptions: New metoprolol tartrate 25 mg Tablet 37.5 mg PO BID Qty: 90 RF: 0 Continued atorvastatin 20 mg tablet 20 mg PO QPM RF: 0 levothyroxine 75 mcg tablet 75 mcg PO DAILYBB RF: 0 flecainide 100 mg tablet 100 mg PO BID RF: 0 diphenhydramine-acetaminophen [Tylenol PM Extra Strength] 25-500 mg Tablet 2 tab PO HS PRN (Reason: Pain) RF: 0 Eliquis 5 mg tablet 5 mg PO BID RF: 0 omeprazole 20 mg Capsule,Delayed Release(Dr/Ec) 20 mg PO QPM RF: 0 vitamin B complex Tablet 1 tab PO QAM RF: 0 magnesium 250 mg Tablet 250 mg PO QAM RF: 0 aspirin 81 mg Tablet 81 mg PO QPM RF: 0 cholecalciferol (vitamin D3) [Vitamin D3] 25 mcg (1,000 unit) Tablet 1,000 unit PO QAM RF: 0 Discontinued metoprolol tartrate 25 mg tablet 25 mg PO BID RF: 0 Discharge Orders: Discharge Order (Routine); Ordered 07/07/20 Ordered By: Max Becerra Admission Data Admit Date/Time: 07/06/20 12:52 Attending Provider: Max Becerra Admit Provider: Max Becerra Primary Care Provider: Brad Torres Other Interventions: Discharge Summary Assessment (RN) Last Done: 07/07/20 10:07 Coding Level of Care Code 23848 OBS Care - Discharge Diagnoses Status post placement of cardiac pacemaker Z95.0 Atrial fibrillation I48.0 Atrial fibrillation type: paroxysmal Anticoagulant long-term use Z79.01
== END 2020-07-07 10:52 | disposition home or self-care (01) ==
LOC: EP 11:58 → 2S 11:58

== ENCOUNTER 2022-08-08 16:22 | Inpatient (IN) ==
--- NOTE | 2022-08-08 16:27 | ED Triage Note ---
Date of Service August 08, 2022 History of Present Illness This patient was briefly evaluated while in triage. An abbreviated physical exam was performed. This patient is a 86-year-old Female who presents to the ED for evaluation of shortness of breath. She was at the family doctor today and was found to have multi focal pneumonia on chest xray. She was 89% on RA at their office. She has been ill for about 10 days. . Physical Exam Limited Triage Exam: VITALS: Vitals are noted on the nurse's note and reviewed by myself. Vital signs stable. GENERAL: Well-developed, well-nourished, white female in NAD HEART: Irregularly irregular LUNGS: Bibasilar crackles R>L NEURO: Patient was alert and oriented to person place and time. CN II through XII grossly intact. Initial orders for labs and / or imaging were placed and patient was placed in the waiting area until a bed is available. Please see further documentation for the full ED course.
[2022-08-08] MEDS ORDERED: AZITHROMYCIN 500 MG in DEXTROSE 5% 250 ML IV STA (16:46)
[2022-08-08] MEDS ORDERED: cefTRIAXone SODIUM 2,000 MG/70 ML BAG IV STA (16:46)
--- NOTE | 2022-08-08 16:49 | Emergency Department Note ---
Impression & Plan Multifocal pneumonia, Hypomagnesemia ED Provider Note NAME: QIANA WEBBER AGE: 86 SEX: F : 1935 ARRIVES VIA: Walk-In INFORMANT: Patient ED PROVIDER(S): Domingo Gupta DO CHIEF COMPLAINT: shortness of breath and PNA HPI: Patient is an 86-year-old female who presents to ER for symptoms that started about 1.5 weeks ago. She admits to cough and congestion as well as shortness of breath. Symptoms have been gradually getting worse. She notes any movement now she is short of breath. She saw her PCP and had an x-ray done and consequently was referred in. She denies any headache or change in vision. She notes she feels like it is in the back of her throat. No chest pain but admits to shortness of breath. No belly pain, nausea, vomiting, or diarrhea. No dy suria, urgency, or frequency. No other exacerbating or remitting factors. PAST MEDICAL HISTORY:See Below PAST SURGICAL HISTORY:See Below FAMILY HISTORY:See Below SOCIAL HISTORY:See Below HOME MEDICATIONS:See Below ALLERGIES:See Below VITALS:See Below PHYSICAL EXAMINATION: GENERAL: Sitting up in bed, alert, disheveled, persistent cough EYE EXAM: normal conjunctiva. PERRL and EOM's grossly intact. OROPHARYNX: mucous membranes are moist NECK: supple, no nuchal rigidity, no adenopathy, non-tender LUNGS: Clear to auscultation. Normal chest wall mechanics HEART: no murmurs, S1 normal and S2 normal ABDOMEN: abdomen soft, non-tender, normo-active bowel sounds, no masses, no rebound or guarding. UPPER EXTREMITIES: upper extremities are grossly normal. LOWER EXTREMITIES: No pitting edema. NEURO EXAM: Normal sensorium, cranial nerves II-XII grossly intact, normal speech, no gross weakness of arms, no gross weakness of legs. MEDICAL DECISION MAKING: Patient is an 86-year-old female referred in by PCP as she was found to be hypoxic in the PCPs office with a pulse ox of 89% and multifocal pneumonia. IV was established blood work was obtained. Labs show no significant leukocytosis or anemia. External records reviewed. Outpatient x-ray was reviewed as well. BMP along with LFTs bilirubin and lactic acid and troponin was negative. Pro- Russell was normal. Viral panel was negative. Chest x-ray with multifocal pneumonia. She is given IV Rocephin and azithromycin and fluids. Updated at bedside and discussed the case with the hospitalist for further evaluation management and treatment with Dr. Craig. Triage Nursing notes reviewed. Limited review of prior medical records performed Vital Signs: reviewed and remarkable for no significant abnormalities Differential diagnosis: Differential diagnoses includes but is not limited to pneumonia, bronchitis, COPD/Asthma exacerbation, pneumothorax, pulmonary embolism, congestive heart failure, acute coronary syndrome ER treatment provided: See below Diagnostics interpreted by me include EKG and cardiac monitoring as listed below: -Cardiac Monitoring: An order was placed for continuous cardiac monitoring. The monitor shows a rate of 70 with sinus rhythm. -ECG: Sinus rhythm rate of 68 normal axis No PVCs QTc 455 -Laboratory studies:Interpreted by me as stated above in MDM and shown below. Imaging studies: Xrays: As interpreted by me: Outpatient chest x-ray was reviewed and showed bilateral pneumonia CTs show: none Consultation(s): As described in MDM Procedures:none Critical Care: None Past Med/Surg History Medical History Atrial fibrillation Chest pain Dyslipidemia Hearing loss Hypertension Hypothyroidism On anticoagulant therapy Transient ischemic attack (TIA) Uterine cancer (~1970) Surgical History History of bilateral cataract extraction History of colonoscopy History of dilatation and curettage History of repair of left rotator cuff History of repair of rectocele History of tooth extraction History of total hysterectomy with bilateral salpingo-oophorectomy (BSO) History of wisdom tooth extraction S/P placement of cardiac pacemaker Status post placement of cardiac pacemaker Family History Mother Family history of reaction to anesthesia Family history of diabetes mellitus Other Bronchiectasis Denies family history of Ovarian cancer Prostate cancer Myocardial infarction Breast cancer Colorectal cancer Social History Smoking Status: Never smoker Second Hand Exposure: No; Do You Dip or Chew Tobacco: No; Hx Alcohol Use: No Hx Substance Use: No Preferred Language: Armenian Communication Ability: Effective 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 Beliefs That Will Affect Care: None Current Living Situation: Spouse Current Living Situation Comment: home with spouse Other Information That Helps Us Care for You: No Feels Safe at Home: Yes Safety Concerns: Feels Safe At This Time Seatbelt Use: always Assistive Devices: None Allergies Allergies Allergy/AdvReac Type Severity Reaction Status Date / Time celecoxib Allergy Mild RASH Verified 08/08/22 14:03 Sulfa (Sulfonamide Allergy Unknown unknown, Verified 08/08/22 14:03 Antibiotics) happened in childhood Home Meds Home Medications Medication Instructions Recorded Confirmed aspirin 81 mg tablet 81 mg PO QPM 04/18/20 08/08/22 cholecalciferol (vitamin D3) 25 1,000 unit PO QAM 04/18/20 08/08/22 mcg (1,000 unit) tablet (Vitamin D3) magnesium 250 mg tablet 250 mg PO QAM 04/18/20 08/08/22 vitamin B complex 1 tab PO QAM 04/18/20 08/08/22 lorazepam 0.5 mg tablet 0.5 mg PO DAILY PRN Anxiety 07/19/20 08/08/22 omega-3 fatty acids [Fish Oil] 1 cap PO DAILY 07/19/20 08/08/22 polyethylene glycol 3350 17 17 g PO DAILY PRN constipation 08/08/22 08/08/22 gram/dose oral powder (Miralax) Previous Rx's Medication Instructions Recorded diltiazem HCl 240 mg capsule,24 240 mg PO DAILY #90 caps 08/16/21 hr,extended release amiodarone 200 mg tablet 200 mg PO DAILY #90 tabs 08/28/21 apixaban 5 mg tablet (Eliquis) 5 mg PO BID #180 tabs 10/02/21 atorvastatin 20 mg tablet 20 mg PO QPM #90 tabs 10/02/21 metoprolol succinate 25 mg 25 mg PO BID #180 tabs 10/02/21 tablet,extended release 24 hr vitamins A,C,X-mxyz-joopgf 4,296 1 cap PO BID #60 caps 10/02/21 mcg-226 mg-90 mg capsule (PreserVision AREDS) levothyroxine 100 mcg tablet 88 mcg PO DAILY #90 tabs 03/05/22 Results & Data (ED) Vital Signs Vital Signs - 24 hr 08/08/22 16:24 08/08/22 16:29 08/08/22 17:07 Temperature 37.1 C Temperature Source Oral Pulse Rate 71 67 Pulse Rate [Apical] Respiratory Rate 20 Respiratory Effort / Characteristics Non-Labored Non-Labored Spontaneous Respiratory Depth Normal Respiratory Pattern Blood Pressure 132/84 Blood Pressure Mean 100 Pulse Oximetry 95 Oxygen Delivery Method Room Air Oxygen Flow Rate Sepsis Recent Fever Within 48 Hours No Sepsis New/Unexplained Change in Mental Status Yes Sepsis Action Taken by Nursing No Action Required Oxygen Flow Rate - Titration Pulse Oximetry Post Tiitration 08/08/22 17:18 08/08/22 17:18 08/08/22 17:58 Temperature Temperature Source Pulse Rate Pulse Rate [Apical] 70 Respiratory Rate 18 Respiratory Effort / Characteristics Non-Labored Spontaneous Respiratory Depth Normal Respiratory Pattern Regular Blood Pressure Blood Pressure Mean Pulse Oximetry 92 92 88 L Oxygen Delivery Method Room Air Room Air Nasal Cannula Oxygen Flow Rate 0 Sepsis Recent Fever Within 48 Hours Sepsis New/Unexplained Change in Mental Status Sepsis Action Taken by Nursing Oxygen Flow Rate - Titration 2 Pulse Oximetry Post Tiitration 91 Laboratory Data 08/08/22 17:40 08/08/22 17:40 Lab Results 08/08/22 08/08/22 08/08/22 Range/Units 17:07 17:07 17:40 WBC 10.76 (4.8-10.8) K/ul RBC 4.80 (4.20-5.40) M/uL Hgb 15.0 (12.0-16.0) g/dl Hct 44.1 (37.0-47.0) % MCV 91.9 (80.0-100.0) fL MCH 31.3 (25.0-34.0) pg MCHC 34.0 (32.0-36.0) g/dL RDW Std Deviation 46.1 (36.4-46.3) fL RDW Coeff of Manav 13.5 (11.5-14.5) % Plt Count 358 (130-400) K/uL MPV 10.0 (9.4-12.4) fL Immature Gran % (Auto) 0.7 % Neut % (Auto) 79.0 % Lymph % (Auto) 6.8 % [place] % (Auto) 10.7 % Eos % (Auto) 2.2 % Baso % (Auto) 0.6 % Neut # (Auto) 8.51 H (1.40-6.50) K/uL Lymph # (Auto) 0.73 L (1.2-3.4) K/uL [place] # (Auto) 1.15 H (0.11-0.59) K/uL Eos # (Auto) 0.24 (0-0.50) K/uL Baso # (Auto) 0.06 (0-0.2) K/uL Immature Gran # (Auto) 0.07 (0.01-0.20) K/uL Sodium (136-145) mmol/L Potassium (3.5-5.1) mmol/L Chloride (98-107) mmol/L Carbon Dioxide (21-32) mmol/L Anion Gap (3-11) BUN (6-23) mg/dl Creatinine (0.6-1.2) mg/dl Est Cr Clr Drug Dosing ml/min Est GFR ( Amer) ml/min Est GFR (Non-Af Amer) ml/min BUN/Creatinine Ratio (10-20) Glucose (70-99(Fasting)) mg/dl Lactate Cancelled Calcium (8.6-10.3) mg/dl Total Bilirubin (0.2-1.0) mg/dl AST (13-39) U/L ALT (7-52) U/L Alkaline Phosphatase (34-104) U/L Troponin I High Sens (0-14) pg/ml Total Protein (6.0-8.3) gm/dl Albumin (3.4-5.0) gm/dl Globulin (2.5-4.0) gm/dl Albumin/Globulin Ratio (0.9-2) Lipase (11-82) U/L Procalcitonin (0-0.5) ng/ml SARS-CoV-2, RNA, NAAT NEGATIVE (NEGATIVE) 08/08/22 08/08/22 Range/Units 17:40 17:40 WBC (4.8-10.8) K/ul RBC (4.20-5.40) M/uL Hgb (12.0-16.0) g/dl Hct (37.0-47.0) % MCV (80.0-100.0) fL MCH (25.0-34.0) pg MCHC (32.0-36.0) g/dL RDW Std Deviation (36.4-46.3) fL RDW Coeff of Manav (11.5-14.5) % Plt Count (130-400) K/uL MPV (9.4-12.4) fL Immature Gran % (Auto) % Neut % (Auto) % Lymph % (Auto) % [place] % (Auto) % Eos % (Auto) % Baso % (Auto) % Neut # (Auto) (1.40-6.50) K/uL Lymph # (Auto) (1.2-3.4) K/uL [place] # (Auto) (0.11-0.59) K/uL Eos # (Auto) (0-0.50) K/uL Baso # (Auto) (0-0.2) K/uL Immature Gran # (Auto) (0.01-0.20) K/uL Sodium 135 L (136-145) mmol/L Potassium 4.2 (3.5-5.1) mmol/L Chloride 100 (98-107) mmol/L Carbon Dioxide 25 (21-32) mmol/L Anion Gap 10 (3-11) BUN 14 (6-23) mg/dl Creatinine 0.73 (0.6-1.2) mg/dl Est Cr Clr Drug Dosing 50.7 ml/min Est GFR ( Amer) 87.0 ml/min Est GFR (Non-Af Amer) 75.1 ml/min BUN/Creatinine Ratio 19.2 (10-20) Glucose 93 (70-99(Fasting)) mg/dl Lactate Calcium 9.0 (8.6-10.3) mg/dl Total Bilirubin 0.7 (0.2-1.0) mg/dl AST 28 (13-39) U/L ALT 26 (7-52) U/L Alkaline Phosphatase 93 (34-104) U/L Troponin I High Sens 6.8 (0-14) pg/ml Total Protein 7.0 (6.0-8.3) gm/dl Albumin 3.7 (3.4-5.0) gm/dl Globulin 3.3 (2.5-4.0) gm/dl Albumin/Globulin Ratio 1.1 (0.9-2) Lipase 32 (11-82) U/L Procalcitonin < 0.05 (0-0.5) ng/ml SARS-CoV-2, RNA, NAAT (NEGATIVE) Administered Medications Apixaban (Apixaban 5 Mg Tablet) 5 mg PO BID DION Stop: 09/07/22 20:59 Last Admin: 08/08/22 22:06 Dose: 5 mg Documented By: SABRINA Aspirin (Aspirin 81 Mg Ectab) 81 mg PO QPM DION Stop: 09/07/22 20:59 Last Admin: 08/08/22 22:06 Dose: 81 mg Documented By: SABRINA Atorvastatin Calcium (Atorvastatin 20 Mg Tab) 20 mg PO QPM DION Stop: 09/07/22 20:59 Last Admin: 08/08/22 22:06 Dose: 20 mg Documented By: SABRINA Doxycycline Hyclate 100 mg/ (Dextrose) 110 mls @ 50 mls/hr IV Q12H DION Stop: 08/15/22 20:44 Last Admin: 08/08/22 22:05 Dose: 50 mls/hr Documented By: SABRINA Metoprolol Succinate (Metoprolol Succ 25mg Ext Rel Tab) 25 mg PO BID DION Stop: 09/07/22 20:59 Last Admin: 08/08/22 22:07 Dose: 25 mg Documented By: SABRINA Multivitamins/Minerals (Cerovite Adv Formula Tab) 1 tab PO BID DION Stop: 09/07/22 20:59 Last Admin: 08/08/22 22:06 Dose: 1 tab Documented By: SABRINA Discontinued Medications Ceftriaxone Sodium (Rocephin) 2,000 mg in 70 mls @ 140 mls/hr IV NOW STA Stop: 08/08/22 17:15 Last Infusion: 08/08/22 18:39 Dose: 0 mls/hr Documented By: Admin: 08/08/22 17:53 Dose: 140 mls/hr Documented By: EAMON Azithromycin 500 mg/ Dextrose 255 mls @ 127.5 mls/hr IV NOW STA Stop: 08/08/22 18:45 Last Infusion: 08/08/22 22:16 Dose: 0 mls/hr Documented By: Admin: 08/08/22 18:39 Dose: 127.5 mls/hr Documented By: EAMON Imaging Data Radiologist's Impression: Chest CT 08/08/22 17:52 Exam(s): CT CHEST Without Contrast EXAM: CT Chest Without Intravenous Contrast CLINICAL HISTORY: ?PNA vs Amio toxicity. TECHNIQUE: Axial computed tomography images of the chest without intravenous contrast. Automated exposure control was utilized for the study. A dose lowering technique was utilized adhering to the principles of ALARA. COMPARISON: CT chest with contrast dated 09/11/2020 FINDINGS: Lungs: There are new diffuse patchy ground-glass opacities throughout both lungs, right greater than left with the left lung involvement predominantly in the inferior lingular segments and left lower lobe. There are some more confluent consolidative changes in the right lower lobe posteriorly with air bronchograms noted. Pleural space: Unremarkable. No pneumothorax. No significant effusion. Heart: Unremarkable. No cardiomegaly. No significant pericardial effusion. No significant coronary artery calcifications. Bones/joints: Unremarkable. No acute fracture. No dislocation. Soft tissues: Unremarkable. Vasculature: Atherosclerotic calcification of the normal caliber aorta. No thoracic aortic aneurysm. Lymph nodes: Nonspecific paratracheal and precarinal lymph nodes without significant lymphadenopathy. Tubes, lines and devices: The cardiac chambers are stable in appearance with left subclavian approach dual lead pacer, stable in position. IMPRESSION: There are new diffuse patchy ground-glass opacities throughout both lungs, right greater than left with the left lung involvement predominantly in the inferior lingular segments and left lower lobe. There are some more confluent consolidative changes in the right lower lobe posteriorly with air bronchograms noted. The appearance of these findings is nonspecific and may represent bilateral pneumonia. However, this pattern may also be seen with amiodarone toxicity. No significant irreversible interstitial fibrotic changes are definitively identified. Electronically signed by: Josef Calloway MD 08/08/22 20:17 PM Discharge Plan Visit Data Chief Complaint: Shortness of Breath/Dyspnea Stated Complaint: PNEUMONIA,LOSS OF APPETITE ED Provider: Domingo Gupta Discharge Problem: Multifocal pneumonia, Hypomagnesemia Patient Disposition: Admitted As Inpatient Discharge Instructions Interventions: ED Discharge Assessment Last Done: 08/08/22 19:56
--- NOTE | 2022-08-08 17:09 | History & Physical Report ---
Date of Service August 08, 2022 Assessment & Plan (1) Acute respiratory failure with hypoxia: Plan: Acute hypoxic respiratory failure,? Multifocal pneumonia versus amiodarone toxicity Outpatient chest x-ray with evidence of multifocal pneumonia. Patient initially treated with Rocephin/azithromycin. QT is not prolonged but given underlying cardiac arrhythmias we will convert to Rocephin/Doxy to minimize QT effects No leukocytosis. CTchest pending Amio temporarily held for potential toxicity. Steroids deferred, if Pro-Russell also negative and CT consistent with drug toxicity start prednisone tomorrow, and consult cardiology for medication adjustments and Amio hold Pro-Russell pending BioFire pending High-sensitivity troponin negative Creatinine normal at baseline, 0.73 on admission History of atrial fibrillation Last interrogation 07/23 showed A-fib burden of approximately 14% Continue Eliquis - Continue diltiazem and metoprolol. Pt did take these morning of admit. Ventricular tachycardia - no hx of RI or stents per pt Hx of pacermaker for single pacemaker w/ hx of heart block and afib. Had an episode of syncope and additionally nonsustained VT noted June 2020, was upgraded to a pacermaker ICD ~2019. - ICD has only fired once maybe twice per patient - Has been on amiodarone for 'years'. 200mg daily Continued on metoprolol twice daily, diltiazem daily as noted Magnesium pending Optimize potassium 4.0, magnesium 2.0 DVT prophylaxis: Anticoagulated on Eliquis Diet: Heart healthy Disposition: PCU for monitoring while Amio held and with history of A-fib/VT CODE STATUS: DNR/DNI History of Present Illness Primary Care Provider: Simona Myers MD Liane Cam is an 86-year-old female with a past medical history of type II AV block, ventricular tachycardia with ICD, hypothyroidism, A-fib, hypertension on Eliquis anticoagulation who presents for a week and a half of progressively worsening cough and congestion with associated shortness of breath. She has had progressive exercise intolerance and now cannot walk a short distance without becoming extremely short of breath. She saw her PCP and was referred to the ER for additional care. At her PCP office a chest x-ray showed multifocal pneumonia was recommended for ER treatment with an elevated curb 65 score. Liane reports she developed afib for years after starting an antidepressant many years ago [place] of last week she developed a hacking cough and progressively worsening shortness of breath Poor appetite. 6-8lb weight loss due go not eating No chest pain or chest pressure Sleeping OK, but again short of breath when she gets up to exert herself. Now has trouble even getting across the room due to SoB. Denies palpitations Cough is nonproductive. No fevers or chills Medical History: Reviewed Medications: Reviewed. Surgical History: Reviewed Family history: Reviewed Allergies: Reviewed. Allergic to sulfa and celebrex Social History: No tobacco use, former etoh use socially none in 3 years Code Status: Full Code Allergies Allergy/AdvReac Type Severity Reaction Status Date / Time celecoxib Allergy Mild RASH Verified 08/08/22 14:03 Sulfa (Sulfonamide Allergy Unknown unknown, Verified 08/08/22 14:03 Antibiotics) happened in childhood Home Medications Medication Instructions Recorded Confirmed Type aspirin 81 mg tablet 81 mg PO QPM 04/18/20 08/08/22 History cholecalciferol (vitamin D3) 25 1,000 unit PO QAM 04/18/20 08/08/22 History mcg (1,000 unit) tablet (Vitamin D3) magnesium 250 mg tablet 250 mg PO QAM 04/18/20 08/08/22 History vitamin B complex 1 tab PO QAM 04/18/20 08/08/22 History lorazepam 0.5 mg tablet 0.5 mg PO DAILY PRN Anxiety 07/19/20 08/08/22 History omega-3 fatty acids [Fish Oil] 1 cap PO DAILY 07/19/20 08/08/22 History diltiazem HCl 240 mg capsule,24 240 mg PO DAILY #90 caps 08/16/21 08/08/22 Rx hr,extended release amiodarone 200 mg tablet 200 mg PO DAILY #90 tabs 08/28/21 08/08/22 Rx apixaban 5 mg tablet (Eliquis) 5 mg PO BID #180 tabs 10/02/21 08/08/22 Rx atorvastatin 20 mg tablet 20 mg PO QPM #90 tabs 10/02/21 08/08/22 Rx metoprolol succinate 25 mg 25 mg PO BID #180 tabs 10/02/21 08/08/22 Rx tablet,extended release 24 hr vitamins A,C,G-ynaz-hmdnud 4,296 1 cap PO BID #60 caps 10/02/21 08/08/22 Rx mcg-226 mg-90 mg capsule (PreserVision AREDS) levothyroxine 100 mcg tablet 88 mcg PO DAILY #90 tabs 03/05/22 08/08/22 Rx Past Med/Surg History Medical History Atrial fibrillation Chest pain Dyslipidemia Hearing loss Hypertension Hypothyroidism On anticoagulant therapy Transient ischemic attack (TIA) Uterine cancer (~1970) Surgical History History of bilateral cataract extraction History of colonoscopy History of dilatation and curettage History of repair of left rotator cuff History of repair of rectocele History of tooth extraction History of total hysterectomy with bilateral salpingo-oophorectomy (BSO) History of wisdom tooth extraction S/P placement of cardiac pacemaker Status post placement of cardiac pacemaker Family History Mother Family history of reaction to anesthesia Family history of diabetes mellitus Other Bronchiectasis Denies family history of Ovarian cancer Prostate cancer Myocardial infarction Breast cancer Colorectal cancer Social History Smoking Status: Never smoker Second Hand Exposure: No; Do You Dip or Chew Tobacco: No; Hx Alcohol Use: No Hx Substance Use: No Preferred Language: [place] Communication Ability: Effective Anesthetic Assistant Required: No Beliefs That Will Affect Care: None Current Living Situation: Spouse Feels Safe at Home: Yes Seatbelt Use: always Assistive Devices: None Review of Systems Review of Systems: All systems reviewed & are unremarkable except as noted in HPI & below Physical Exam Physical Exam: General: A&Ox3. NAD. Cooperative. HEENT: Atraumatic, normocephalic. Vision/hearing intact. Pulm: CTAB A&P. -wheezes, -rales, -rhonchi. Symmetrical chest rise. No increased work of breathing. No respiratory distress. Cardiac: RRR, -mrg. Radial pulses intact and symmetrical. Abdominal: Nontender, nondistended, soft. BS present. Ext: Warm, dry. no edema. Results & Data Results & Data Vital Signs (Past 12 Hours) Vital Signs Temp Pulse Resp BP Pulse Ox O2 Del Method 08/08/22 16:24 37.1 C 71 20 132/84 95 Room Air PG Care Time/CCT Total # of Minutes Spent Total Time Spent with Patient: Total time spent is greater than 50% in coordination of care (as documented) at patient's floor/unit and/or counseling patient: Coding Level of Care Code 70878 INT INP/OBS CARE 3/75MIN Diagnoses Acute respiratory failure with hypoxia J96.01
[2022-08-08 18:06] LABS: Basophils # (auto) 0.06 K/uL (0-0.2); Basophils % (auto) 0.6 %; Eosinophils # (auto) 0.24 K/uL (0-0.50); Eosinophils % (auto) 2.2 %; Hematocrit (blood only) 44.1 % (37.0-47.0); Immature Granulocytes # (auto) 0.07 K/uL (0.01-0.20); Immature Granulocytes % (auto) 0.7 %; Lymphocytes # (auto) 0.73 K/uL (1.2-3.4); Lymphocytes % (auto) 6.8 %; Mean Corpuscular Hemoglobin 31.3 pg (25.0-34.0); Mean Corpuscular Volume 91.9 fL (80.0-100.0); Monocytes # (auto) 1.15 K/uL (0.11-0.59); Monocytes % (auto) 10.7 %; Neutrophils # (auto) 8.51 K/uL (1.40-6.50); Platelet Count 358 K/uL (130-400); RDW Coefficient of Variation 13.5 % (11.5-14.5); RDW Standard Deviation 46.1 fL (36.4-46.3); White Blood Count 10.76 K/ul (4.8-10.8)
[2022-08-08 18:26] LABS: Albumin Globulin Ratio 1.1 (0.9-2); Albumin Level 3.7 gm/dl (3.4-5.0); BUN Creatinine Ratio 19.2 (10-20); Bilirubin,Total 0.7 mg/dl (0.2-1.0); Creatinine Clr Calc Pharmacy 50.7 ml/min; Est GFR (Non-African American) 75.1 ml/min; Globulin 3.3 gm/dl (2.5-4.0); Potassium 4.2 mmol/L (3.5-5.1); Troponin I High Sensitivity 6.8 pg/ml (0-14)
[2022-08-08 19:53] LABS: Adenovirus PCR Not Detected (NotDetected); Bordetella parapertussis PCR Not Detected (NotDetected); Bordetella pertussis PCR Not Detected (NotDetected); Chlamydia pneumoniae PCR Not Detected (NotDetected); Coronavirus 229E PCR Not Detected (NotDetected); Coronavirus CoV-2 (COVID19)PCR Not Detected (NotDetected); Coronavirus HKU1 PCR Not Detected (NotDetected); Coronavirus NL63 PCR Not Detected (NotDetected); Coronavirus OC43PCR Not Detected (NotDetected); Human Metapneumovirus PCR Not Detected (NotDetected); Influenza A PCR Not Detected (NotDetected); Influenza B PCR Not Detected (NotDetected); Mycoplasma pneumoniae PCR Not Detected (NotDetected); Parainfluenza Virus 1 PCR Not Detected (NotDetected); Parainfluenza Virus 2 PCR Not Detected (NotDetected); Parainfluenza Virus 3 PCR Not Detected (NotDetected); Parainfluenza Virus 4 PCR Not Detected (NotDetected); Respiratory Syncytial VirusPCR Not Detected (NotDetected); Rhinovirus/Enterovirus PCR Not Detected (NotDetected)
--- NOTE | 2022-08-08 20:18 | CT Scan Report ---
Exam(s): CT CHEST Without Contrast EXAM: CT Chest Without Intravenous Contrast CLINICAL HISTORY: ?PNA vs Amio toxicity. TECHNIQUE: Axial computed tomography images of the chest without intravenous contrast. Automated exposure control was utilized for the study. A dose lowering technique was utilized adhering to the principles of ALARA. COMPARISON: CT chest with contrast dated 09/11/2020 FINDINGS: Lungs: There are new diffuse patchy ground-glass opacities throughout both lungs, right greater than left with the left lung involvement predominantly in the inferior lingular segments and left lower lobe. There are some more confluent consolidative changes in the right lower lobe posteriorly with air bronchograms noted. Pleural space: Unremarkable. No pneumothorax. No significant effusion. Heart: Unremarkable. No cardiomegaly. No significant pericardial effusion. No significant coronary artery calcifications. Bones/joints: Unremarkable. No acute fracture. No dislocation. Soft tissues: Unremarkable. Vasculature: Atherosclerotic calcification of the normal caliber aorta. No thoracic aortic aneurysm. Lymph nodes: Nonspecific paratracheal and precarinal lymph nodes without significant lymphadenopathy. Tubes, lines and devices: The cardiac chambers are stable in appearance with left subclavian approach dual lead pacer, stable in position. IMPRESSION: There are new diffuse patchy ground-glass opacities throughout both lungs, right greater than left with the left lung involvement predominantly in the inferior lingular segments and left lower lobe. There are some more confluent consolidative changes in the right lower lobe posteriorly with air bronchograms noted. The appearance of these findings is nonspecific and may represent bilateral pneumonia. However, this pattern may also be seen with amiodarone toxicity. No significant irreversible interstitial fibrotic changes are definitively identified. Electronically signed by: Josef Calloway MD 08/08/22 20:17 PM
[2022-08-08] MEDS ORDERED: LORazepam 0.5 MG TAB PO PRN (20:19)
[2022-08-08] MEDS ORDERED: POLYETHYLENE (MIRALAX) 17 GM PACK PO PRN (20:25)
[2022-08-08] MEDS: DOXYCYCLINE HYCLATE 100 MG in DEXTROSE 5% 100 ML IV SCH (22:05)
[2022-08-08] MEDS: ASPIRIN 81 MG ECTAB PO SCH (22:06)
[2022-08-08] MEDS: APIXABAN 5 MG TABLET PO SCH (22:06)
[2022-08-08] MEDS: CEROVITE ADV FORMULA TAB PO SCH (22:06)
[2022-08-08] MEDS: ATORVASTATIN 20 MG TAB PO SCH (22:06)
[2022-08-08] MEDS: METOPROLOL SUCC 25MG EXT REL TAB PO SCH (22:07)
[2022-08-09] MEDS: LEVOTHYROXINE SODIUM 100 MCG TABLET PO SCH (06:23)
[2022-08-09] MEDS: APIXABAN 5 MG TABLET PO SCH ×2 (08:21→20:48)
[2022-08-09] MEDS: VITAMIN B COMPLEX TAB PO SCH (08:21)
[2022-08-09] MEDS: METOPROLOL SUCC 25MG EXT REL TAB PO SCH ×2 (08:21→20:49)
[2022-08-09] MEDS: CHOLECALCIFEROL 1,000 UNITS 25 MCG TAB PO SCH (08:21)
[2022-08-09] MEDS: dilTIAZem HCL 240 MG CAPCR PO SCH (08:21)
[2022-08-09] MEDS: DOXYCYCLINE HYCLATE 100 MG in DEXTROSE 5% 100 ML IV SCH (08:26)
--- NOTE | 2022-08-09 08:44 | Hospitalist Progress Note ---
Date of Service August 09, 2022 Assessment & Plan (1) Amiodarone toxicity: Plan: Differential also includes multifocal pneumonia, however procal negative, lactate not elevated, no leukocytosis, no other systemic signs of infection such as fevers CT Chest with diffuse patchy ground-glass opacities in both lungs R>L, nonspecific and may represent multifocal pneumonia or amiodarone toxicity Antibiotics discontinued, continue to monitor for infectious signs however more suspicious of amio toxicity Amiodarone on hold, continue prednisone 40 mg daily, total of 2 weeks of steroid therapy Wean oxygen as tolerated, continue to monitor Pulmonology consulted and appreciate recommendations, also recommended CT chest in 6 to 8 weeks for follow-up Case discussed with Drs. Moncada and Tristian on 08/09 (2) Acute respiratory failure with hypoxia: Plan: Suspected to be secondary to amiodarone toxicity (3) Ventricular tachycardia: Plan: Cardiology consulted as patient has Hx both AFib and VTach with AICD, and now holding amiodarone for suspected toxicity Patient does have a history of syncope events in the past, however my understanding and review of the chart is that these events happened prior to AICD/pacer placement, so they should be less likely with AICD in place Cardiology to continue to follow through the weekend, with follow-up with Dr. Becerra in the outpatient setting to determine whether to continue holding amiodarone (4) ICD (implantable cardioverter-defibrillator), dual, in situ: Plan: see above (5) Atrial fibrillation: Plan: Continue apixaban and diltiazem, holding amiodarone as above Telemetry has showed normal sinus rhythm with first-degree AV block, patient advised by cardiology that she may note more A-fib as her amiodarone serum concentration declines (6) Hypothyroidism: Plan: Continue levothyroxine Plan Continued cardiac monitoring on telemetry, monitoring of oxygen status with wean oxygen as tolerated. Will need to step prior to discharge to determine if will need supplemental oxygen on discharge home. She lives with her who has dementia, son is coming from [place] to stay with him. She plans to return home on discharge, do not anticipate any PT/OT needs on discharge. Admission and Anticipated Discharge Date Admission Date: August 08, 2022 Subjective Patient without any acute events reported overnight. No complaints of palpitations, shortness of breath much improved on small amount of supplemental oxygen and with prednisone therapy, able to take deep breaths today when she reports that she could not yesterday. No other stated complaints. Review of Systems Review of Systems: All systems reviewed & are unremarkable except as noted in Subjective Physical Exam Constitutional: WD/WN, vitals as above Respiratory: normal respiratory effort, lungs clear to auscultation Cardiovascular: RRR, no murmur, no edema Gastrointestinal (Abdomen): normal bowel sounds, soft, nontender, no hepatosplenomegaly Skin: no rashes, warm and dry Psychiatric: A+Ox3, euthymic affect Results & Data Results & Data Vital Signs (Past 12 Hours) Vital Signs Temp Pulse Resp BP Pulse Ox O2 Del Method O2 Flow Rate 08/09/22 08:00 36.9 C 68 18 110/73 98 Nasal Cannula 2 08/09/22 03:22 36.7 C 67 16 109/65 95 Nasal Cannula 2 08/08/22 23:00 36.8 C 69 19 119/65 94 Nasal Cannula 2 08/08/22 21:10 Nasal Cannula 2 08/08/22 20:45 36.6 C 77 16 155/86 H 92 Nasal Cannula 2 PG Care Time/CCT Total # of Minutes Spent Total Time Spent with Patient: Total time spent is greater than 50% in coordination of care (as documented) at patient's floor/unit and/or counseling patient: Coding Level of Care Code 29212 SUB INP/OBS CARE 3/50MIN Diagnoses Amiodarone toxicity T46.2X1A Acute respiratory failure with hypoxia J96.01 Ventricular tachycardia I47.2 ICD (implantable cardioverter-defibrillator), dual, in situ Z95.810 Atrial fibrillation I48.0 Atrial fibrillation type: paroxysmal Hypothyroidism E03.9 (5) Atrial fibrillation Atrial fibrillation type: paroxysmal Qualified Code(s): I48.0 - Paroxysmal atrial fibrillation
[2022-08-09] MEDS ORDERED: AMIODARONE 200 MG TAB PO SCH (09:00)
[2022-08-09] MEDS ORDERED: OMEGA PO SCH (09:00)
[2022-08-09] MEDS ORDERED: MAGNESIUM OXIDE 400 MG TAB PO SCH (09:00)
[2022-08-09] MEDS: predniSONE 20 MG TAB PO SCH (10:11)
[2022-08-09] MEDS: CEROVITE ADV FORMULA TAB PO SCH ×2 (10:11→20:50)
--- NOTE | 2022-08-09 12:32 | Pulmonary Consultation ---
Date of Consultation August 09, 2022 Assessment & Plan (1) Idiopathic interstitial pneumonia: (2) Paroxysmal ventricular tachycardia: Plan Respiratory bio fire was negative on admission. 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 She is improving on empiric prednisone therapy and discontinuation of amiodarone. If this is feasible from a cardiac perspective, I would recommend a 2-week course of prednisone and follow-up imaging with a CT chest in approximately 6 to 8 weeks. Given that she is clinically improved and has elevated cardiac risk factors for intervention such as bronchoscopy, I would like to hold off bronchoscopy unless absolutely necessary. Additionally, a bronchoscopy would unlikely give us definitive information regarding amiodarone toxicity as this is usually a diagnosis of exclusion and based off of clinical/radiographic findings. I am doubtful of other more serious causes such as alveolar hemorrhage as her hemoglobin is stable and she does not have any hemoptysis. Malignancy also seems less likely, but remains low on the differential. Thank you for the consultation. Please call with questions. Patient can follow-up with pulmonary as an outpatient. Discussed with Dr. Moncada, cardiology. History of Present Illness Reason for Consultation: Concern for amiodarone pulmonary toxicity Attending Physician: Marbella Goff, History of Present Illness 86-year-old female who presented to the hospital yesterday due to shortness of breath and cough for the past 2 weeks. She notes that she is having trouble with walking short distances. Her PCP referred her to the ER. She was started on broad-spectrum antibiotics per the primary team. She follows with outpatient cardiology for history of A-fib, ventricular tachycardia and dual-chamber defibrillator. She is chronically on amiodarone and she has had mild elevations in her LFTs in the past due to amiodarone use. CT chest reviewed which reveals diffuse infiltrates. Right upper lobe mixed groundglass and alveolar infiltrates greater than left upper lobe. There are also nodular infiltrates in the right middle lobe and lingula and bibasilar consolidations in the lower lobes bilaterally. No evidence of pleural effusion. She also had a CT August 2020 which revealed a right lower lobe pleural-based nodule and right lower lobe atelectasis. Pro-Russell was negative on admission. Antibiotics have since been discontinued and the patient is currently on prednisone 40 mg daily. Amiodarone has also been discontinued. She is saturating 97% on room air. Cough is improved significantly. She she denies hemoptysis. She denies any pets. She denies any recent travel. She is a lifelong non-smoker. 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 Allergies Allergy/AdvReac Type Severity Reaction Status Date / Time celecoxib Allergy Mild RASH Verified 08/08/22 14:03 Sulfa (Sulfonamide Allergy Unknown unknown, Verified 08/08/22 14:03 Antibiotics) happened in childhood Home Medications Medication Instructions Recorded Confirmed Type aspirin 81 mg tablet 81 mg PO QPM 04/18/20 08/08/22 History cholecalciferol (vitamin D3) 25 1,000 unit PO QAM 04/18/20 08/08/22 History mcg (1,000 unit) tablet (Vitamin D3) magnesium 250 mg tablet 250 mg PO QAM 04/18/20 08/08/22 History vitamin B complex 1 tab PO QAM 04/18/20 08/08/22 History lorazepam 0.5 mg tablet 0.5 mg PO DAILY PRN Anxiety 07/19/20 08/08/22 History omega-3 fatty acids [Fish Oil] 1 cap PO DAILY 07/19/20 08/08/22 History diltiazem HCl 240 mg capsule,24 240 mg PO DAILY #90 caps 08/16/21 08/08/22 Rx hr,extended release amiodarone 200 mg tablet 200 mg PO DAILY #90 tabs 08/28/21 08/08/22 Rx apixaban 5 mg tablet (Eliquis) 5 mg PO BID #180 tabs 10/02/21 08/08/22 Rx atorvastatin 20 mg tablet 20 mg PO QPM #90 tabs 10/02/21 08/08/22 Rx metoprolol succinate 25 mg 25 mg PO BID #180 tabs 10/02/21 08/08/22 Rx tablet,extended release 24 hr vitamins A,C,W-filq-ijptfe 4,296 1 cap PO BID #60 caps 10/02/21 08/08/22 Rx mcg-226 mg-90 mg capsule (PreserVision AREDS) levothyroxine 100 mcg tablet 88 mcg PO DAILY #90 tabs 03/05/22 08/08/22 Rx polyethylene glycol 3350 17 17 g PO DAILY PRN constipation 08/08/22 08/08/22 History gram/dose oral powder (Miralax) Patient History Medical History (Updated 08/09/22 @ 12:28 by Sd Lubin MD) Atrial fibrillation Chest pain Dyslipidemia Hearing loss Hypertension Hypothyroidism Idiopathic interstitial pneumonia On anticoagulant therapy eliquis bid Transient ischemic attack (TIA) x3--last 8 yrs ago--no deficits, no neurologist Uterine cancer (~1970) diagnosed 1969--sx only Surgical History History of bilateral cataract extraction History of colonoscopy History of dilatation and curettage History of repair of left rotator cuff History of repair of rectocele History of tooth extraction History of total hysterectomy with bilateral salpingo-oophorectomy (BSO) History of wisdom tooth extraction S/P placement of cardiac pacemaker Status post placement of cardiac pacemaker Family History Mother Family history of reaction to anesthesia Family history of diabetes mellitus Other Bronchiectasis Denies family history of Ovarian cancer Prostate cancer Myocardial infarction Breast cancer Colorectal cancer Social History Smoking Status: Never smoker Second Hand Exposure: No; Do You Dip or Chew Tobacco: No; Hx Alcohol Use: No Hx Substance Use: No Preferred Language: Russian Communication Ability: Effective Quality Checker Required: No Beliefs That Will Affect Care: None Current Living Situation: Spouse Current Living Situation Comment: home with spouse Other Information That Helps Us Care for You: No Feels Safe at Home: Yes Safety Concerns: Feels Safe At This Time Seatbelt Use: always Assistive Devices: None Review of Systems Review of Systems: All systems reviewed & are unremarkable except as noted in HPI & below Physical Exam Physical Exam: Constitutional: Patient appears to be of their stated age. Patient is in no apparent distress. Patient is well-developed. Eyes: Pupils are equal round and reactive to light. Conjunctivae are normal. Anicteric sclera. Ears nose, mouth and throat: Mallampati class []. Normal posterior oropharynx. Uvula is midline. Neck: Trachea is midline. Visual inspection is normal. Respiratory: Clear to auscultation bilaterally. No use of accessory muscles. No significant clubbing noted. Cardiovascular: Regular rate and rhythm. No murmurs. No edema. Gastrointestinal: Normal bowel sounds, soft, nontender and nondistended. No hepatosplenomegaly noted. Musculoskeletal: No cyanosis. Patient is able to move all extremities. Strength is 5 out of 5 in the upper and lower extremities. Skin: No rashes, warm dry and intact. Neurologic: No obvious focal neurological deficits seen. Psychiatric: Alert and oriented x3 with a euthymic affect. Results & Data Results & Data Vital Signs (Past 12 Hours) Vital Signs Temp Pulse Pulse Resp BP Pulse Ox O2 Del Method 08/09/22 08:00 Nasal Cannula 08/09/22 08:00 70 08/09/22 08:00 36.9 C 68 18 110/73 98 Nasal Cannula 08/09/22 03:22 36.7 C 67 16 109/65 95 Nasal Cannula O2 Flow Rate 08/09/22 08:00 2 08/09/22 08:00 08/09/22 08:00 2 08/09/22 03:22 2 PG Care Time/CCT Total # of Minutes Spent Total Time Spent with Patient: Total time spent is greater than 50% in coordination of care (as documented) at patient's floor/unit and/or counseling patient: Coding Level of Care Code 40483 INT INP/OBS CARE MIN Diagnoses Idiopathic interstitial pneumonia J84.111 Paroxysmal ventricular tachycardia I47.2
[2022-08-09] MEDS ORDERED: cefTRIAXone SODIUM 2,000 MG in DEXTROSE 5% 50 ML IV SCH (18:00)
--- NOTE | 2022-08-09 20:29 | Cardiology Consultation ---
Date of Consultation August 09, 2022 Assessment & Plan (1) Paroxysmal atrial fibrillation: (2) Idiopathic interstitial pneumonia: (3) ICD (implantable cardioverter-defibrillator), dual, in situ: (4) Paroxysmal ventricular tachycardia: Plan ASSESSMENT/PLAN: 1. Paroxysmal ventricular tachycardia: Has been on amiodarone as per electrophysiology. 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 Amiodarone discontinued. Discussed with patient possibility of recurrent ventricular tachycardia which in the past had caused syncope but that was before ICD placement. For now, continue without specific antiarrhythmic therapy. Recommend follow-up with electrophysiology as an outpatient to determine other potential treatment for VT, if deemed necessary. Continue beta-kurt and diltiazem. 2. Paroxysmal atrial fibrillation: May have more frequent A-fib episodes off of amiodarone. Continue rate controlling medications. Had been on flecainide in the past, but then had ventricular tachycardia with syncope. Continue anticoagulation for stroke risk reduction. Aspirin not necessary from a cardiac standpoint while on anticoagulation therapy. 3. Interstitial pneumonia: As per pulmonology. 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 Prednisone and repeat imaging recommended by pulmonology. 4. ICD: Continue to follow with electrophysiology as an outpatient. 5. Disposition: Please call with any other questions or concerns. Cardiology will sign off at this time. Follow-up with Dr. Becerra as an outpatient. Patient care communicated with Dr. Lubin of pulmonology. Patient care discussed with Dr. Goff, primary hospitalist. Thank you for allowing me to participate in the care of your patient. Please call for any other questions or concerns. Sincerely, Adi Moncada M.D. History of Present Illness Reason for Consultation: "Concern Amio toxicity, A-fib and history of V. tach" Requesting Physician: Marbella Goff DO Attending Physician: Marbella Goff DO History of Present Illness Mrs. Cam is a very pleasant 86-year-old female with a history significant for paroxysmal atrial fibrillation, ventricular tachycardia s/p dual-chamber ICD, TIA (2008), hypertension, and dyslipidemia. Her primary facilities administrator is Dr. Becerra. In summary, her cardiac history is pertinent for paroxysmal atrial fibrillation. She has also had syncope. She had loop recorder in the past. She was noted to have ventricular pauses on loop recorder in the past and underwent pacemaker placement on 07/06/2020. Later that month, she had syncope in [place], [place]. Device interrogation demonstrated ventricular tachycardia. She underwent cardiac cath on 07/11/2020 without significant CAD reported. Pacemaker was upgraded to ICD on 07/13/2020. She had been on flecainide, which was discontinued and she was placed on diltiazem and amiodarone. She has continued on with amiodarone since July 2020. She continues to follow with her waste oil pumper in the outpatient setting. She reports history of ICD shock once or twice in the past. She describes A-fib symptoms as feeling spacey as though something is wrong and reports that she has intermittent episodes. She was admitted on 08/08/2022 with shortness of breath and diagnosed with acute respiratory failure with hypoxia. CT imaging suggested possible amiodarone toxicity, for which cardiology consultation was requested, as well as pulmonology. She has felt dyspneic on exertion for the past 2 weeks. She states that this occurred after restarting an antidepressant after 1 dose. She felt awful, had her typical atrial fibrillation symptoms and then the next day developed shortness of breath with nonproductive cough. She denies orthopnea, syncope, near syncope, chest discomfort. The dyspnea with exertion had progressed over the course of 2 weeks. She admits that she feels somewhat better today when she was seen this afternoon since hospitalization. She denies melena, hematochezia, hematuria, edema, or palpitations. Review of systems: As above. Review of systems otherwise negative/unremarkable. Family history: No known premature CAD. Social history: She denies smoking or significant alcohol consumption. She lives at home with her who has dementia. She has 2 sons and [place] and a daughter in [place]. She was unaccompanied in her hospital room. Allergies Allergy/AdvReac Type Severity Reaction Status Date / Time celecoxib Allergy Mild RASH Verified 08/08/22 14:03 Sulfa (Sulfonamide Allergy Unknown unknown, Verified 08/08/22 14:03 Antibiotics) happened in childhood Home Medications Medication Instructions Recorded Confirmed Type aspirin 81 mg tablet 81 mg PO QPM 04/18/20 08/08/22 History cholecalciferol (vitamin D3) 25 1,000 unit PO QAM 04/18/20 08/08/22 History mcg (1,000 unit) tablet (Vitamin D3) magnesium 250 mg tablet 250 mg PO QAM 04/18/20 08/08/22 History vitamin B complex 1 tab PO QAM 04/18/20 08/08/22 History lorazepam 0.5 mg tablet 0.5 mg PO DAILY PRN Anxiety 07/19/20 08/08/22 History omega-3 fatty acids [Fish Oil] 1 cap PO DAILY 07/19/20 08/08/22 History diltiazem HCl 240 mg capsule,24 240 mg PO DAILY #90 caps 08/16/21 08/08/22 Rx hr,extended release amiodarone 200 mg tablet 200 mg PO DAILY #90 tabs 08/28/21 08/08/22 Rx apixaban 5 mg tablet (Eliquis) 5 mg PO BID #180 tabs 10/02/21 08/08/22 Rx atorvastatin 20 mg tablet 20 mg PO QPM #90 tabs 10/02/21 08/08/22 Rx metoprolol succinate 25 mg 25 mg PO BID #180 tabs 10/02/21 08/08/22 Rx tablet,extended release 24 hr vitamins A,C,R-zudt-pbpwtc 4,296 1 cap PO BID #60 caps 10/02/21 08/08/22 Rx mcg-226 mg-90 mg capsule (PreserVision AREDS) levothyroxine 100 mcg tablet 88 mcg PO DAILY #90 tabs 03/05/22 08/08/22 Rx polyethylene glycol 3350 17 17 g PO DAILY PRN constipation 08/08/22 08/08/22 History gram/dose oral powder (Miralax) Patient History Medical History (Updated 08/09/22 @ 20:39 by Mj Moncada MD) Atrial fibrillation Chest pain Dyslipidemia Hearing loss Hypertension Hypothyroidism ICD (implantable cardioverter-defibrillator), dual, in situ Idiopathic interstitial pneumonia On anticoagulant therapy eliquis bid Transient ischemic attack (TIA) x3--last 8 yrs ago--no deficits, no neurologist Uterine cancer (~1970) diagnosed 1969--sx only Ventricular tachycardia Surgical History History of bilateral cataract extraction History of colonoscopy History of dilatation and curettage History of repair of left rotator cuff History of repair of rectocele History of tooth extraction History of total hysterectomy with bilateral salpingo-oophorectomy (BSO) History of wisdom tooth extraction S/P placement of cardiac pacemaker Status post placement of cardiac pacemaker Family History Mother Family history of reaction to anesthesia Family history of diabetes mellitus Other Bronchiectasis Denies family history of Ovarian cancer Prostate cancer Myocardial infarction Breast cancer Colorectal cancer Social History Smoking Status: Never smoker Second Hand Exposure: No; Do You Dip or Chew Tobacco: No; Hx Alcohol Use: No Hx Substance Use: No Preferred Language: Mohawk Communication Ability: Effective Ordinary Seaman Required: No Beliefs That Will Affect Care: None Current Living Situation: Spouse Current Living Situation Comment: home with spouse Other Information That Helps Us Care for You: No Feels Safe at Home: Yes Safety Concerns: Feels Safe At This Time Seatbelt Use: always Assistive Devices: None Physical Exam Physical Exam: Gen.: No acute distress. Alert and oriented. HEENT: Anicteric sclera. Neck: No JVD. No hepatojugular reflux. No bruits. Normal carotid upstrokes bilaterally. Cardiac: No ventricular heave. Regular. Normal S1-S2. No murmurs, rubs, or gallops. Pulmonary: Bilateral crackles in the lower lung lepe. Abdomen: Soft, nontender, nondistended, with normoactive bowel sounds. No bruits noted. Extremities: 2+ radial pulses bilaterally. 2+ posterior tibialis pulses bilaterally. No edema or cyanosis. Psychiatric: Affect appears appropriate. Results & Data Vital Signs (Past 12 Hours) Vital Signs Temp Pulse Pulse Resp BP Pulse Ox O2 Del Method 08/09/22 19:47 36.7 C 70 20 125/73 93 Nasal Cannula 08/09/22 16:00 37.0 C 74 18 105/74 Room Air 08/09/22 15:32 69 08/09/22 12:00 36.7 C 62 18 118/63 97 Room Air O2 Flow Rate 08/09/22 19:47 2 08/09/22 16:00 08/09/22 15:32 08/09/22 12:00 Intake & Output 08/07/22 08/08/22 08/09/22 08/10/22 06:59 06:59 06:59 06:59 Intake Total 435 / 435 Balance 435 / 435 Weight 148 lb 9.465 oz Laboratory Results Laboratory Results - last 24 hr 08/08/22 08/09/22 23:06 06:09 Magnesium 1.6 L Nasal Screen MRSA (PCR) Negative Laboratory Results - last 48 hr 08/08/22 08/08/22 08/08/22 17:07 17:07 17:40 WBC 10.76 RBC 4.80 Hgb 15.0 Hct 44.1 MCV 91.9 MCH 31.3 MCHC 34.0 RDW Std Deviation 46.1 RDW Coeff of Manav 13.5 Plt Count 358 MPV 10.0 Immature Gran % (Auto) 0.7 Neut % (Auto) 79.0 Lymph % (Auto) 6.8 Perkins % (Auto) 10.7 Eos % (Auto) 2.2 Baso % (Auto) 0.6 Neut # (Auto) 8.51 H Lymph # (Auto) 0.73 L Perkins # (Auto) 1.15 H Eos # (Auto) 0.24 Baso # (Auto) 0.06 Immature Gran # (Auto) 0.07 Sodium Potassium Chloride Carbon Dioxide Anion Gap BUN Creatinine Est Cr Clr Drug Dosing Est GFR ( Amer) Est GFR (Non-Af Amer) BUN/Creatinine Ratio Glucose Lactate Cancelled Calcium Magnesium Total Bilirubin AST ALT Alkaline Phosphatase Troponin I High Sens Total Protein Albumin Globulin Albumin/Globulin Ratio Lipase Procalcitonin Nasal Screen MRSA (PCR) Adenovirus (PCR) B. pertussis DNA (PCR) B.parapertussis DNA PCR C. pneumoniae DNA (PCR) Coronavirus OC43 (PCR) Coronavirus HKU1 (PCR) Coronavirus 229E (PCR) SARS-CoV-2 (PCR) Coronavirus NL63 (PCR) Human Metapneumovir PCR Influenza Type A (PCR) Influenza Type B (PCR) M. pneumoniae (PCR) Parainfluenza 1 (PCR) Parainfluenza 2 (PCR) Parainfluenza 3 (PCR) Parainfluenza 4 (PCR) RSV (PCR) Entero/Rhino (PCR) SARS-CoV-2, RNA, NAAT NEGATIVE 08/08/22 08/08/22 08/08/22 17:40 17:40 18:49 WBC RBC Hgb Hct MCV MCH MCHC RDW Std Deviation RDW Coeff of Manav Plt Count MPV Immature Gran % (Auto) Neut % (Auto) Lymph % (Auto) Perkins % (Auto) Eos % (Auto) Baso % (Auto) Neut # (Auto) Lymph # (Auto) Perkins # (Auto) Eos # (Auto) Baso # (Auto) Immature Gran # (Auto) Sodium 135 L Potassium 4.2 Chloride 100 Carbon Dioxide 25 Anion Gap 10 BUN 14 Creatinine 0.73 Est Cr Clr Drug Dosing 50.7 Est GFR ( Amer) 87.0 Est GFR (Non-Af Amer) 75.1 BUN/Creatinine Ratio 19.2 Glucose 93 Lactate 1.0 Calcium 9.0 Magnesium Total Bilirubin 0.7 AST 28 ALT 26 Alkaline Phosphatase 93 Troponin I High Sens 6.8 Total Protein 7.0 Albumin 3.7 Globulin 3.3 Albumin/Globulin Ratio 1.1 Lipase 32 Procalcitonin < 0.05 Nasal Screen MRSA (PCR) Adenovirus (PCR) B. pertussis DNA (PCR) B.parapertussis DNA PCR C. pneumoniae DNA (PCR) Coronavirus OC43 (PCR) Coronavirus HKU1 (PCR) Coronavirus 229E (PCR) SARS-CoV-2 (PCR) Coronavirus NL63 (PCR) Human Metapneumovir PCR Influenza Type A (PCR) Influenza Type B (PCR) M. pneumoniae (PCR) Parainfluenza 1 (PCR) Parainfluenza 2 (PCR) Parainfluenza 3 (PCR) Parainfluenza 4 (PCR) RSV (PCR) Entero/Rhino (PCR) SARS-CoV-2, RNA, NAAT 08/08/22 08/08/22 08/08/22 18:49 18:53 23:06 WBC RBC Hgb Hct MCV MCH MCHC RDW Std Deviation RDW Coeff of Manav Plt Count MPV Immature Gran % (Auto) Neut % (Auto) Lymph % (Auto) Perkins % (Auto) Eos % (Auto) Baso % (Auto) Neut # (Auto) Lymph # (Auto) Perkins # (Auto) Eos # (Auto) Baso # (Auto) Immature Gran # (Auto) Sodium Potassium Chloride Carbon Dioxide Anion Gap BUN Creatinine Est Cr Clr Drug Dosing Est GFR ( Amer) Est GFR (Non-Af Amer) BUN/Creatinine Ratio Glucose Lactate Calcium Magnesium 1.6 L Total Bilirubin AST ALT Alkaline Phosphatase Troponin I High Sens Total Protein Albumin Globulin Albumin/Globulin Ratio Lipase Procalcitonin Nasal Screen MRSA (PCR) Negative Adenovirus (PCR) Not Detected B. pertussis DNA (PCR) Not Detected B.parapertussis DNA PCR Not Detected C. pneumoniae DNA (PCR) Not Detected Coronavirus OC43 (PCR) Not Detected Coronavirus HKU1 (PCR) Not Detected Coronavirus 229E (PCR) Not Detected SARS-CoV-2 (PCR) Not Detected Coronavirus NL63 (PCR) Not Detected Human Metapneumovir PCR Not Detected Influenza Type A (PCR) Not Detected Influenza Type B (PCR) Not Detected M. pneumoniae (PCR) Not Detected Parainfluenza 1 (PCR) Not Detected Parainfluenza 2 (PCR) Not Detected Parainfluenza 3 (PCR) Not Detected Parainfluenza 4 (PCR) Not Detected RSV (PCR) Not Detected Entero/Rhino (PCR) Not Detected SARS-CoV-2, RNA, NAAT 08/09/22 06:09 WBC RBC Hgb Hct MCV MCH MCHC RDW Std Deviation RDW Coeff of Manav Plt Count MPV Immature Gran % (Auto) Neut % (Auto) Lymph % (Auto) Perkins % (Auto) Eos % (Auto) Baso % (Auto) Neut # (Auto) Lymph # (Auto) Perkins # (Auto) Eos # (Auto) Baso # (Auto) Immature Gran # (Auto) Sodium Potassium Chloride Carbon Dioxide Anion Gap BUN Creatinine Est Cr Clr Drug Dosing Est GFR ( Amer) Est GFR (Non-Af Amer) BUN/Creatinine Ratio Glucose Lactate Calcium Magnesium 1.6 L Total Bilirubin AST ALT Alkaline Phosphatase Troponin I High Sens Total Protein Albumin Globulin Albumin/Globulin Ratio Lipase Procalcitonin Nasal Screen MRSA (PCR) Adenovirus (PCR) B. pertussis DNA (PCR) B.parapertussis DNA PCR C. pneumoniae DNA (PCR) Coronavirus OC43 (PCR) Coronavirus HKU1 (PCR) Coronavirus 229E (PCR) SARS-CoV-2 (PCR) Coronavirus NL63 (PCR) Human Metapneumovir PCR Influenza Type A (PCR) Influenza Type B (PCR) M. pneumoniae (PCR) Parainfluenza 1 (PCR) Parainfluenza 2 (PCR) Parainfluenza 3 (PCR) Parainfluenza 4 (PCR) RSV (PCR) Entero/Rhino (PCR) SARS-CoV-2, RNA, NAAT Diagnostic Findings Telemetry personally reviewed: Sinus rhythm. No arrhythmia. History and physical report reviewed. Pulmonary consultation report reviewed. Labs from 08/08/2022 notable for normal blood counts, normal renal function, normal potassium, normal transaminase levels, and TSH was normal on 07/08/2022. ECG personally reviewed 08/08/2022: Sinus rhythm [address] chest 08/08/2022: New diffuse patchy groundglass opacities throughout both lung lepe, right greater than left with left lung involvement predominantly in the inferior lingular segments and left lower lobe. Appearance is nonspecific per radiology but may represent bilateral pneumonia and also may be seen with amiodarone toxicity. Medications Administered Current Inpatient Medications Apixaban (Apixaban 5 Mg Tablet) 5 mg PO BID DION Stop: 09/07/22 20:59 Last Admin: 08/09/22 08:21 Dose: 5 mg Aspirin (Aspirin 81 Mg Ectab) 81 mg PO QPM DION Stop: 09/07/22 20:59 Last Admin: 08/08/22 22:06 Dose: 81 mg Atorvastatin Calcium (Atorvastatin 20 Mg Tab) 20 mg PO QPM DION Stop: 09/07/22 20:59 Last Admin: 08/08/22 22:06 Dose: 20 mg Diltiazem HCl (Diltiazem Hcl 240 Mg Capcr) 240 mg PO DAILY DION Stop: 09/08/22 08:59 Last Admin: 08/09/22 08:21 Dose: 240 mg Levothyroxine Sodium (Levothyroxine Sodium 100 Mcg Tablet) 100 mcg PO DAILYBB DION Stop: 09/08/22 06:29 Last Admin: 08/09/22 06:23 Dose: 100 mcg Lorazepam (Lorazepam 0.5 Mg Tab) 0.5 mg PO DAILY PRN PRN Reason: Anxiety Stop: 09/07/22 20:18 Magnesium Oxide (Magnesium Oxide 400 Mg Tab) 400 mg PO DAILY DION Stop: 09/09/22 08:59 Metoprolol Succinate (Metoprolol Succ 25mg Ext Rel Tab) 25 mg PO BID DION Stop: 09/07/22 20:59 Last Admin: 08/09/22 08:21 Dose: 25 mg Multivitamins/Minerals (Cerovite Adv Formula Tab) 1 tab PO BID [facility] Stop: 09/07/22 20:59 Last Admin: 08/09/22 10:11 Dose: 1 tab Polyethylene Glycol (Polyethylene (Miralax) 17 Gm Pack) 17 gm PO HS PRN PRN Reason: Constipation Stop: 09/07/22 20:24 Prednisone (Prednisone 20 Mg Tab) 40 mg PO DAILY [facility] Stop: 09/08/22 08:59 Last Admin: 08/09/22 10:11 Dose: 40 mg Vitamin B Complex (Vitamin B Complex Tab) 1 tab PO QAM [facility] Stop: 09/08/22 08:59 Last Admin: 08/09/22 08:21 Dose: 1 tab Vitamin D (Cholecalciferol 1,000 Units 25 Mcg Tab) 1,000 units PO QAM [facility] Stop: 09/08/22 08:59 Last Admin: 08/09/22 08:21 Dose: 1,000 units PG Care Time/CCT Total # of Minutes Spent Total Time Spent with Patient: Total time spent is greater than 50% in coordination of care (as documented) at patient's floor/unit and/or counseling patient: Coding Level of Care Code 76467 INT INP/OBS CARE 3/75MIN Diagnoses Paroxysmal atrial fibrillation I48.0 Idiopathic interstitial pneumonia J84.111 ICD (implantable cardioverter-defibrillator), dual, in situ Z95.810 Paroxysmal ventricular tachycardia I47.2
[2022-08-09] MEDS: ATORVASTATIN 20 MG TAB PO SCH (20:50)
[2022-08-09] MEDS: ASPIRIN 81 MG ECTAB PO SCH (20:50)
[2022-08-10] MEDS: LEVOTHYROXINE SODIUM 100 MCG TABLET PO SCH (06:05)
[2022-08-10 06:15] LABS: Hematocrit (blood only) 36.9 % (37.0-47.0); Hemoglobin 12.8 g/dl (12.0-16.0); Mean Corpuscular Hemoglobin 31.1 pg (25.0-34.0); Mean Corpuscular Hgb Conc 34.7 g/dL (32.0-36.0); Mean Corpuscular Volume 89.8 fL (80.0-100.0); Mean Platelet Volume 9.9 fL (9.4-12.4); Platelet Count 365 K/uL (130-400); RDW Coefficient of Variation 13.3 % (11.5-14.5); RDW Standard Deviation 44.1 fL (36.4-46.3); Red Blood Count 4.11 M/uL (4.20-5.40); White Blood Count 12.47 K/ul (4.8-10.8)
[2022-08-10 06:27] LABS: Calcium 8.7 mg/dl (8.6-10.3); Creatinine Clr Calc Pharmacy 60.7 ml/min; Est GFR (African American) 95.8 ml/min; Est GFR (Non-African American) 82.7 ml/min; Magnesium 1.7 mg/dl (1.7-2.4); Potassium 3.9 mmol/L (3.5-5.1)
[2022-08-10] MEDS: MAGNESIUM OXIDE 400 MG TAB PO SCH (08:47)
[2022-08-10] MEDS: CHOLECALCIFEROL 1,000 UNITS 25 MCG TAB PO SCH (08:47)
[2022-08-10] MEDS: VITAMIN B COMPLEX TAB PO SCH (08:47)
[2022-08-10] MEDS: predniSONE 20 MG TAB PO SCH (08:47)
[2022-08-10] MEDS: METOPROLOL SUCC 25MG EXT REL TAB PO SCH ×2 (08:47→20:16)
[2022-08-10] MEDS: dilTIAZem HCL 240 MG CAPCR PO SCH (08:47)
[2022-08-10] MEDS: CEROVITE ADV FORMULA TAB PO SCH ×2 (08:47→20:17)
[2022-08-10] MEDS: APIXABAN 5 MG TABLET PO SCH ×2 (08:47→20:16)
--- NOTE | 2022-08-10 11:55 | Hospitalist Progress Note ---
Date of Service August 10, 2022 Assessment & Plan (1) Amiodarone toxicity: Plan: Differential also includes multifocal pneumonia, however procal negative, lactate not elevated, no leukocytosis, no other systemic signs of infection such as fevers CT Chest with diffuse patchy ground-glass opacities in both lungs R>L, nonspecific and may represent multifocal pneumonia or amiodarone toxicity Antibiotics discontinued, continue to monitor for infectious signs however more suspicious of amio toxicity Amiodarone on hold, continue prednisone 40 mg daily, total of 2 weeks of steroid therapy Wean oxygen as tolerated, continue to monitor Pulmonology consulted and appreciate recommendations, also recommended CT chest in 6 to 8 weeks for follow-up Case discussed with Drs. Moncada and Tristian on 08/09 (2) Acute respiratory failure with hypoxia: Plan: Suspected to be secondary to amiodarone toxicity (3) Ventricular tachycardia: Plan: Cardiology consulted as patient has Hx both AFib and VTach with AICD, and now holding amiodarone for suspected toxicity Patient does have a history of syncope events in the past, however my understanding and review of the chart is that these events happened prior to AICD/pacer placement, so they should be less likely with AICD in place Cardiology to continue to follow through the weekend, with follow-up with Dr. Becerra in the outpatient setting to determine whether to continue holding amiodarone (4) ICD (implantable cardioverter-defibrillator), dual, in situ: Plan: see above (5) Atrial fibrillation: Plan: Continue apixaban and diltiazem, holding amiodarone as above Telemetry has showed normal sinus rhythm with first-degree AV block, patient advised by cardiology that she may note more A-fib as her amiodarone serum concentration declines (6) Hypothyroidism: Plan: Continue levothyroxine Plan Continued cardiac monitoring on telemetry, monitoring of oxygen status with wean oxygen as tolerated. She lives with her who has dementia, son is coming from [place] to stay with him. She plans to return home on discharge, do not anticipate any PT/OT needs on discharge. Do anticipate patient will need a prescription for oxygen, currently per recent two-step will need 2 L continuous at rest with 5 L with activity. Do anticipate that this is temporary and will improve with time, however do anticipate will be needed on discharge. Admission and Anticipated Discharge Date Admission Date: August 08, 2022 Subjective No acute events overnight. Reports that she can take a deep breath easier today. Comfortable on 2 L at rest, during two-step had to be increased up to 5 L due to hypoxia and lightheadedness but tolerated walking with 5 L well. Review of Systems Review of Systems: All systems reviewed & are unremarkable except as noted in Subjective Physical Exam Constitutional: WD/WN, vitals as above Respiratory: crackles bilateral lower lung lepe Cardiovascular: RRR, no murmur, no edema Gastrointestinal (Abdomen): normal bowel sounds, soft, nontender, no hepatosplenomegaly Skin: no rashes, warm and dry Psychiatric: A+Ox3, euthymic affect Results & Data Results & Data Vital Signs (Past 12 Hours) Vital Signs Temp Pulse Pulse Pulse Resp BP Pulse Ox 08/10/22 08:00 71 08/10/22 07:31 36.9 C 64 18 133/75 95 08/10/22 02:59 37.1 C 68 18 133/77 93 O2 Del Method O2 Flow Rate 08/10/22 08:00 08/10/22 07:31 Nasal Cannula 2 08/10/22 02:59 Nasal Cannula 2 PG Care Time/CCT Total # of Minutes Spent Total Time Spent with Patient: Total time spent is greater than 50% in coordination of care (as documented) at patient's floor/unit and/or counseling patient: Coding Level of Care Code 97352 SUB INP/OBS CARE 2/35MIN Diagnoses Amiodarone toxicity T46.2X1A Acute respiratory failure with hypoxia J96.01 Ventricular tachycardia I47.2 ICD (implantable cardioverter-defibrillator), dual, in situ Z95.810 Atrial fibrillation I48.0 Atrial fibrillation type: paroxysmal Hypothyroidism E03.9 (5) Atrial fibrillation Atrial fibrillation type: paroxysmal Qualified Code(s): I48.0 - Paroxysmal atrial fibrillation
--- NOTE | 2022-08-10 13:42 | Pulmonology Progress Note ---
Date of Service August 10, 2022 Assessment & Plan (1) Idiopathic interstitial pneumonia: (2) Paroxysmal ventricular tachycardia: Plan Respiratory bio fire was negative on admission. 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 She is improving on empiric prednisone therapy and discontinuation of amiodarone. If this is feasible from a cardiac perspective, I would recommend a 2-week course of prednisone and follow-up imaging with a CT chest in approximately 6 to 8 weeks. Given that she is clinically improved and has elevated cardiac risk factors for intervention such as bronchoscopy, I would like to hold off bronchoscopy unless absolutely necessary. Additionally, a bronchoscopy would unlikely give us definitive information regarding amiodarone toxicity as this is usually a diagnosis of exclusion and based off of clinical/radiographic findings. I am doubtful of other more serious causes such as alveolar hemorrhage as her hemoglobin is stable and she does not have any hemoptysis. Thank you for the consultation. Please call with questions. Patient can follow-up with pulmonary as an outpatient. Pulm to sign off. Admission and Anticipated Discharge Date Admission Date: August 08, 2022 Subjective Patient seen and examined. Cough improved. Less dyspnea today. Able to shower and walk around the hallways. Review of Systems Review of Systems: All systems reviewed & are unremarkable except as noted in HPI & below Physical Exam Physical Exam: Constitutional: Patient appears to be of their stated age. Patient is in no apparent distress. Patient is well-developed. Eyes: Pupils are equal round and reactive to light. Conjunctivae are normal. Anicteric sclera. Ears nose, mouth and throat: Mallampati class 2. Normal posterior oropharynx. Uvula is midline. Neck: Trachea is midline. Visual inspection is normal. Respiratory: Crackles in the lower lobes bilaterally Cardiovascular: Regular rate and rhythm. No murmurs. No edema. Gastrointestinal: Normal bowel sounds, soft, nontender and nondistended. No hepatosplenomegaly noted. Musculoskeletal: No cyanosis. Patient is able to move all extremities. Strength is 5 out of 5 in the upper and lower extremities. Skin: No rashes, warm dry and intact. Neurologic: No obvious focal neurological deficits seen. Psychiatric: Alert and oriented x3 with a euthymic affect. Results & Data Results & Data Vital Signs (Past 12 Hours) Vital Signs Temp Pulse Pulse Pulse Pulse Pulse Pulse 08/10/22 11:03 67 86 90 92 H 08/10/22 12:00 36.5 C 08/10/22 08:00 71 08/10/22 07:31 36.9 C 08/10/22 02:59 37.1 C 68 Pulse Pulse Pulse Pulse Resp Resp Resp 08/10/22 11:03 80 84 68 18 22 08/10/22 12:00 69 16 08/10/22 08:00 08/10/22 07:31 64 18 08/10/22 02:59 18 Resp Resp Resp Resp Resp BP Pulse Ox 08/10/22 11:03 20 20 20 18 18 08/10/22 12:00 135/83 93 08/10/22 08:00 08/10/22 07:31 133/75 95 08/10/22 02:59 133/77 93 Pulse Ox Pulse Ox Pulse Ox Pulse Ox Pulse Ox Pulse Ox Pulse Ox 08/10/22 11:03 92 86 L 88 L 90 85 L 92 88 L 08/10/22 12:00 08/10/22 08:00 08/10/22 07:31 08/10/22 02:59 O2 Del Method O2 Flow Rate O2 Flow Rate O2 Flow Rate O2 Flow Rate O2 Flow Rate O2 Flow Rate 08/10/22 11:03 2 3 4 5 2 08/10/22 12:00 Nasal Cannula 2 08/10/22 08:00 08/10/22 07:31 Nasal Cannula 2 08/10/22 02:59 Nasal Cannula 2 O2 Flow Rate 08/10/22 11:03 2 08/10/22 12:00 08/10/22 08:00 08/10/22 07:31 08/10/22 02:59 PG Care Time/CCT Total # of Minutes Spent Total Time Spent with Patient: Total time spent is greater than 50% in coordination of care (as documented) at patient's floor/unit and/or counseling patient: Coding Level of Care Code 59899 SUB INP/OBS CARE 2/35MIN Diagnoses Idiopathic interstitial pneumonia J84.111 Paroxysmal ventricular tachycardia I47.2
[2022-08-10] MEDS: ATORVASTATIN 20 MG TAB PO SCH (20:16)
[2022-08-10] MEDS: ASPIRIN 81 MG ECTAB PO SCH (20:17)
--- NOTE | 2022-08-10 22:31 | Electrocardiogram Report ---
Test Reason : Blood Pressure : / mmHG Vent. Rate : 068 BPM Atrial Rate : 068 BPM P-R Int : 192 ms QRS Dur : 094 ms QT Int : 428 ms P-R-T Axes : 082 046 045 degrees QTc Int : 455 ms Normal sinus rhythm Normal ECG When compared with ECG of 06-JUL-2020 15:58, Sinus rhythm has replaced Atrial fibrillation Confirmed by Mj Moncada ([id number]) on 08/10/2022 10:30:37 PM Referred By: REFERRED SELF Confirmed By:Mj Moncada
[2022-08-11] MEDS: LEVOTHYROXINE SODIUM 100 MCG TABLET PO SCH (05:40)
[2022-08-11] MEDS: METOPROLOL SUCC 25MG EXT REL TAB PO SCH (08:29)
[2022-08-11] MEDS: APIXABAN 5 MG TABLET PO SCH (08:29)
[2022-08-11] MEDS: CEROVITE ADV FORMULA TAB PO SCH (08:29)
[2022-08-11] MEDS: VITAMIN B COMPLEX TAB PO SCH (08:30)
[2022-08-11] MEDS: dilTIAZem HCL 240 MG CAPCR PO SCH (08:30)
[2022-08-11] MEDS: MAGNESIUM OXIDE 400 MG TAB PO SCH (08:30)
[2022-08-11] MEDS: predniSONE 20 MG TAB PO SCH (08:30)
[2022-08-11] MEDS: CHOLECALCIFEROL 1,000 UNITS 25 MCG TAB PO SCH (08:30)
--- NOTE | 2022-08-11 08:44 | Discharge Summary ---
Discharge Summary Date of Service August 11, 2022 Admission HPI Per Admitting Provider Liane Cam is an 86-year-old female with a past medical history of type II AV block, ventricular tachycardia with ICD, hypothyroidism, A-fib, hypertension on Eliquis anticoagulation who presents for a week and a half of progressively worsening cough and congestion with associated shortness of breath. She has had progressive exercise intolerance and now cannot walk a short distance without becoming extremely short of breath. She saw her PCP and was referred to the ER for additional care. At her PCP office a chest x-ray showed multifocal pneumonia was recommended for ER treatment with an elevated curb 65 score. Liane reports she developed afib for years after starting an antidepressant many years ago Friday of last week she developed a hacking cough and progressively worsening shortness of breath Poor appetite. 6-8lb weight loss due go not eating No chest pain or chest pressure Sleeping OK, but again short of breath when she gets up to exert herself. Now has trouble even getting across the room due to SoB. Denies palpitations Cough is nonproductive. No fevers or chills Medical History: Reviewed Medications: Reviewed. Surgical History: Reviewed Family history: Reviewed Allergies: Reviewed. Allergic to sulfa and celebrex Social History: No tobacco use, former etoh use socially none in 3 years Code Status: Full Code Admission Exam Per Admitting Provider General: A&Ox3. NAD. Cooperative. HEENT: Atraumatic, normocephalic. Vision/hearing intact. Pulm: CTAB A&P. -wheezes, -rales, -rhonchi. Symmetrical chest rise. No increased work of breathing. No respiratory distress. Cardiac: RRR, -mrg. Radial pulses intact and symmetrical. Abdominal: Nontender, nondistended, soft. BS present. Ext: Warm, dry. no edema. Principal Dx & Hospital Course #1 = Principal Diagnosis (1) Amiodarone toxicity: Differential also includes multifocal pneumonia, however procal negative, lactate not elevated, no leukocytosis, no other systemic signs of infection such as fevers CT Chest with diffuse patchy ground-glass opacities in both lungs R>L, nonspecific and may represent multifocal pneumonia or amiodarone toxicity Amiodarone on hold, continue prednisone 40 mg daily, total of 2 weeks of steroid therapy On two-step patient required 2 L nasal cannula at rest, with 5 L nasal cannula with activity Pulmonology consulted and appreciate recommendations, CT chest in 6 to 8 weeks, follow-up in the office in 2 weeks Case discussed with Dr. Becerra on 08/11, will have close follow-up with cardiology as well (2) Acute respiratory failure with hypoxia: Suspected to be secondary to amiodarone toxicity (3) Ventricular tachycardia: Cardiology consulted as patient has Hx both AFib and VTach with AICD, and now holding amiodarone for suspected toxicity Patient does have a history of syncope events in the past, however my understanding and review of the chart is that these events happened prior to AICD/pacer placement, so they should be less likely with AICD in place Follow-up with Dr. Becerra in the outpatient setting to determine whether to continue holding amiodarone (4) ICD (implantable cardioverter-defibrillator), dual, in situ: see above (5) Atrial fibrillation: Continue apixaban and diltiazem, holding amiodarone as above Telemetry has showed normal sinus rhythm with first-degree AV block, patient advised by cardiology that she may note more A-fib as her amiodarone serum concentration declines (6) Hypothyroidism: Continue levothyroxine Plan Return home with supplemental oxygen, follow-ups with cardiology and pulmonology. Amiodarone on hold for now, continue steroid taper x2 weeks. Patient given return precautions. Discharge Exam Constitutional WD/WN, vitals as above Respiratory Good air movement, intermittent rhonchi Cardiovascular Heart regular rate and rhythm no murmurs, no peripheral edema Psychiatric A+Ox3, euthymic affect Updated Medication List Medication Instructions Recorded Confirmed Type aspirin 81 mg tablet 81 mg PO QPM 04/18/20 08/08/22 History cholecalciferol (vitamin D3) 25 1,000 unit PO QAM 04/18/20 08/08/22 History mcg (1,000 unit) tablet (Vitamin D3) magnesium 250 mg tablet 250 mg PO QAM 04/18/20 08/08/22 History vitamin B complex 1 tab PO QAM 04/18/20 08/08/22 History lorazepam 0.5 mg tablet 0.5 mg PO DAILY PRN Anxiety 07/19/20 08/08/22 History omega-3 fatty acids [Fish Oil] 1 cap PO DAILY 07/19/20 08/08/22 History diltiazem HCl 240 mg capsule,24 240 mg PO DAILY #90 caps 08/16/21 08/08/22 Rx hr,extended release apixaban 5 mg tablet (Eliquis) 5 mg PO BID #180 tabs 10/02/21 08/08/22 Rx atorvastatin 20 mg tablet 20 mg PO QPM #90 tabs 10/02/21 08/08/22 Rx metoprolol succinate 25 mg 25 mg PO BID #180 tabs 10/02/21 08/08/22 Rx tablet,extended release 24 hr vitamins A,C,I-vtfv-ciolab 4,296 1 cap PO BID #60 caps 10/02/21 08/08/22 Rx mcg-226 mg-90 mg capsule (PreserVision AREDS) levothyroxine 100 mcg tablet 88 mcg PO DAILY #90 tabs 03/05/22 08/08/22 Rx polyethylene glycol 3350 17 17 g PO DAILY PRN constipation 08/08/22 08/08/22 History gram/dose oral powder (Miralax) prednisone 20 mg tablet See Taper PO DAILY #19 tabs 08/11/22 Rx Hospital Stay Data Consultations 08/08/22 16:49 ED Decision to Admit Stat 08/09/22 08:32 Consult Cardiology Routine 08/09/22 11:16 Consult Pulmonology Routine Diagnostic Imagining Performed 08/08/22 17:52 CT chest diagnostic wo con Urgent Discharge Instructions Given to Patient (Per Discharging Provider) You are admitted to the hospital for evaluation of trouble breathing. Your found to very likely have a pneumonia due to amiodarone toxicity. You did not have any markers suggestive of an infectious pneumonia. Your amiodarone was stopped and you were put on steroids, with improvement in your breathing. You were required to have oxygen in order to keep normal oxygen levels, when you return home you should be on 2 L of oxygen when you are at rest, and 5 L with walking and activities. We anticipate that this will likely improve with time, you will have follow-up with pulmonology in the next 2 weeks, please call their office with the above phone number if you do not hear from them by Friday or Friday. You should also follow-up with your family doctor. Your amiodarone medication was stopped, so please let cardiology know if you have any palpitations or lightheadedness or passing out. Total Time Total Time Spent Total Time Spent (In Minutes): 35 minutes Coding Level of Care Code 70918 INP/OBS DISCH >30 MIN Diagnoses Amiodarone toxicity T46.2X1A Acute respiratory failure with hypoxia J96.01 Ventricular tachycardia I47.2 ICD (implantable cardioverter-defibrillator), dual, in situ Z95.810 Atrial fibrillation I48.0 Atrial fibrillation type: paroxysmal Hypothyroidism E03.9
== END 2022-08-11 14:36 | disposition home or self-care (01) | DRG 917 ==
LOC: ED 16:22 → 2S 18:17 → SUATTDRO 18:17 → 2S 19:56